=== PATIENT | male | born 1960 | race Caucasian/White ===

== ENCOUNTER 2019-11-25 08:54 | Outpatient (CLI) | payer OTHER, SELFPAY ==
--- NOTE | ~2019-11-25 | CT_ITS ---
EXAMINATION: CT abdomen pelvis wo/w con EXAM DATE: 11/25/2019 10:32 INDICATION: Recurrent UTI. Bladder cancer. TECHNIQUE: Spiral CT of the abdomen and pelvis was performed without contrast. The patient was then injected with small bolus intravenous Omnipaque 350, followed by delay of approximately 10 minutes to allow collecting system to opacify. A post contrast scan abdomen and pelvis was performed during inj ection of remaining contrast. A total of 130 cc intravenous contrast was administered. The dose-gabriele th product (DLP) for this examination was 1672.32 mGy-cm. The exposure was tailored according to pat ient size (auto mA exposure control), and iterative reconstruction (ASIR) was used as additional dose reduction technique. Comparison is made to prior examination from 05/10/2015. FINDINGS: There is no hydronephrosis or nephrolithiasis. Largest cyst identified is in the superior pole of the left kidney measuring 3.8 cm. There is slightly decreased enhancement to the left kidney posterior superomedial cortex compared to the other portions of the left kidney, also with slight vo lume loss, both findings new compared to previous examination. This could be a region which was recen tly infected, with some scarring accounting for volume loss. Complete infarction would have had more substantial volume loss. There are no suspicious renal lesions. The calyces and opacified portions o f ureters are unremarkable, without filling defects or focal suspicious strictures. The bladder is u nremarkable. The prostate is unremarkable. The liver, spleen, adrenal glands and pancreas are unremarkable. Gallbladder is unremarkable. No bi liary obstruction. There is no retroperitoneal or pelvic lymphadenopathy. There is mild scattered arteriosclerotic disease. The appendix is normal. There is small sliding gastroesophageal hiatal hernia. There is moderate sig moid predominant colonic diverticulosis. There is no adjacent inflammatory change to suggest diverti culitis. There is expected amount of colonic stool. No free intraperitoneal gas. The heart is nor mal in size. There are no pericardial or pleural effusions. Mild basilar emphysema. There are no o steoblastic or osteolytic lesions identified. IMPRESSION: 1. Slightly decreased enhancement, perfusion to geographically shaped region of left kidney superior pole with mild volume loss, most likely sequela from prior infection or hypoperfusion. 2. No evidence of metastatic disease. 3. Moderate colonic diverticulosis. 4. Mild emphysema. Reviewed, dictated and finalized at location A. IMPRESSION: 1. Slightly decreased enhancement, perfusion to geographically shaped region o f left kidney superior pole with mild volume loss, most likely sequela from gilda or infection or hypoperfusion. 2. No evidence of metastatic disease. 3. Moderate colonic diverticulosis. 4. Mild emphysema.
--- NOTE | ~2019-11-25 | XR_ITS ---
XR abdomen/kub 1V DATE: 11/25/2019 09:12 INDICATION: Malignant neoplasm of the trigone of the urinary bladder TECHNIQUE: AP projection, 2 views COMPARISON: 08/27/2018 ultrasound of the kidneys and bladder FINDINGS: The psoas shadows are intact. No visceromegaly is evident. The bowel gas pattern is unremar kable, without evidence of obstruction. Bilateral iliac arterial calcifications are noted. IMPRESSION: Nonspecific abdomen Reviewed, dictated and finalized at Location A. Reviewed, dictated and finalized at location A. IMPRESSION: Nonspecific abdomen
[2019-11-25 10:03] LABS: Estimated Glomerular Filt Rate > 60
== END 2019-11-25 08:55 | disposition home or self-care (01) ==
PROVIDERS: PCP Internal Medicine; Visit Provider Urology
DX: C67.0 Malignant neoplasm of trigone of bladder (principal); R93.422 Abnormal radiologic findings on diagnostic imaging of left kidney; K57.90 Diverticulosis of intestine, part unspecified, without perforation or abscess without bleeding; J43.9 Emphysema, unspecified
CPT/HCPCS: 36415; 74018; 74178; Q9967

== ENCOUNTER 2020-01-08 09:45 | Outpatient (CLI) | payer OTHER, SELFPAY ==
[2020-01-08 13:47] LABS: Basophils Absolute Auto 0.1 K/mm3 (0.0-0.1); Basophils Percent Auto 0.6 % (0.2-1.2); Eosinophils Absolute Auto 0.1 K/mm3 (0-0.3); Hematocrit 40.2 % (42.0-52.0); Hemoglobin 13.9 g/dL (14.0-18.0); Immature Granulocyte Absolute 0.04 K/mm3 (0.00-0.031); Immature Granulocyte Percent A 0.4 % (0-0.5); Lymphocytes Absolute Auto 2.67 K/mm3 (0.9-3.2); Lymphocytes Percent Auto 27.3 % (18.3-44.2); Mean Corpuscular HGB Conc 34.6 g/dl (32-36); Mean Corpuscular Hemoglobin 30.3 pg (26-34); Mean Corpuscular Volume 87.6 fl (80-100); Mean Platelet Volume 8.3 fl (7.4-10.4); Monocytes Absolute Auto 0.4 K/mm3 (0.1-0.6); Monocytes Percent Auto 3.7 % (2.6-8.5); Neutrophils Absolute Auto 6.6 K/mm3 (1.3-6.7); Platelet Count Result 222 k/mm3 (150-375); Red Blood Count 4.59 M/mm3 (4.6-6.20); Red Cell Distribution Width 14.8 % (11.5-14.5); White Blood Count 9.8 K/mm3 (4.5-10.0)
[2020-01-08 13:57] LABS: Prothrombin Time 13.2 Seconds (11.1-14.7)
[2020-01-08 13:58] LABS: Partial Thromboplastin Time 27.9 SECONDS (22.3-36.8)
[2020-01-08 14:02] LABS: Blood Urea Nitrogen 14 mg/dL (9-20); Calcium 9.2 mg/dL (8.4-10.2); Carbon Dioxide 25 mmol/L (22-30); Chloride 101 mmol/L (98-107); Estimated Glomerular Filt Rate > 60; Glucose 164 mg/dL (75-110); Potassium 3.9 mmol/L (3.4-5.0); Sodium 137 mmol/L (137-145)
== END 2020-01-08 09:46 ==
LOC: ANHSURGERY 02-01 06:43
PROVIDERS: PCP Internal Medicine; Visit Provider Urology
DX: Z01.818 Encounter for other preprocedural examination (principal); N32.9 Bladder disorder, unspecified
CPT/HCPCS: 36415; 80048; 85025; 85610; 85730; 87086

== ENCOUNTER 2020-01-16 06:22 | Outpatient (CLI) | payer OTHER, SELFPAY ==
[2020-01-16 17:27] LABS: SARS-CoV-2 RNA PCR Negative
== END 2020-01-16 06:23 | disposition home or self-care (01) ==
LOC: ANHCOVIDDT 06:22
PROVIDERS: PCP Internal Medicine; Visit Provider Urology
DX: Z01.812 Encounter for preprocedural laboratory examination (principal); Z11.59 Encounter for screening for other viral diseases
CPT/HCPCS: 87635; C9803; U0003

== ENCOUNTER 2020-01-19 02:26 | Day surgery (SDC) | payer OTHER, SELFPAY ==
[2020-01-06 16:08] VITALS: BMI 29.9
[2020-01-19] VITALS (9 sets, daily range): BP systolic 95–110; BP diastolic 59–80; PULSE 56–70; RESP 12–20; TEMP 36.1–36.7; O2SAT 97–100
--- NOTE | ~2020-01-19 | XR_ITS ---
XR OR cystogram 01/19/2020 12:22 Pain management procedure TECHNIQUE: Fluoroscopy used during intraoperative cystoscopy performed by [Pete Barlow MD] on 01/19/2020. 13 seconds of fluoroscopy time with 10 images captured. ]The DAP is 6.189 mGym2. ] FINDINGS: There is normal filling of the bladder in retrograde fashion. No focal bladder wall abnorma lities are seen. No evidence for extravasation or reflux. Correlate with procedure note. IMPRESSION: Unremarkable cystogram performed intraoperatively. Correlate with procedural findings. Reviewed, dictated and finalized at location A. IMPRESSION: Unremarkable cystogram performed intraoperatively. Correlate with p rocedural findings.
[2020-01-19] MEDS: LACTATED RINGERS 1,000 ML 30 ML IV CONT (09:00)
--- NOTE | 2020-01-19 09:32 | ECG_ITS ---
Measurements Intervals [place] Rate: 63 P: 77 [place]: 198 QRS: 59 QRSD: 88 T: 60 QT: 400 QTc: 411 Interpretive Statements SINUS RHYTHM NORMAL ECG Electronically Signed On 01-19-2020 10:53:35 CDT by Stan Leija D.O.
--- NOTE | 2020-01-19 10:30 | WPDANESEPPF ---
Anes - Initial Pre Proc Eval Procedure: Operation Date: 01/19/20 11:45 Proposed Procedures p Cystoscopy, Bladder Biopsy - Pete Barlow MD s Possible Trans Urethral Resection Bladder Tumor - Pete Barlow MD Date/Time: 01/19/20 10:30 Surgeon: Pete Barlow MD Pre Op Diagnosis: bladder lesion,Bladder Cancer Patient Data Age: 60 Gender: M Height: 5 ft 11 in Weight: 97.52 kg Last Vital Signs Temp 36.1 C L 01/19/20 09:49 Pulse 70 01/19/20 09:49 Resp 20 01/19/20 09:49 BP 104/59 L 01/19/20 09:49 Pulse Ox 97 01/19/20 09:49 Allergies Allergy/AdvReac Type Severity Reaction Status Date / Time No Known Allergies Allergy Unknown Unverified 01/19/20 10:27 Home Medications Medication Instructions Recorded Confirmed Type aspirin 325 mg tablet 325 mg PO QPM 08/07/19 01/06/20 History atorvastatin 80 mg tablet 80 mg PO QPM 08/07/19 01/06/20 History isosorbide mononitrate 30 mg 30 mg PO QPM 08/07/19 01/06/20 History tablet,extended release 24 hr lisinopril 10 1 tablet PO QPM 08/07/19 01/06/20 History mg-hydrochlorothiazide 12.5 mg tablet omega 4-jft-dxq-fish oil 1,000 mg 2 cap PO QPM cap 08/07/19 01/06/20 History (120 mg-180 mg) capsule quetiapine 25 mg tablet 50 mg PO QPM tablet 08/07/19 01/06/20 History tamsulosin 0.4 mg capsule 0.4 mg PO QPM 08/07/19 01/06/20 History amoxicillin-pot clavulanate 1 tablet PO BID 01/06/20 01/06/20 History cranberry 2 cap PO QPM 01/06/20 01/06/20 History ferrous sulfate 325 mg PO QPM 01/06/20 01/06/20 History Patient hx anesthesia problems: none Family hx anesthesia problems: none PMFSH Past Medical History Medical History Acute diverticulitis Anemia, unspecified CAD in [place] artery CKD (chronic kidney disease) stage 3, GFR 30-59 ml/min Dyslipidemia Essential hypertension (06/02/18) Orthostatic syncope PAD (peripheral artery disease) Smoking Surgical History Surgical History History of tonsillectomy Status post femoral-popliteal bypass surgery Family History Family History Father Acute myocardial infarction Family history of elevated blood lipids Malignant neoplasm of prostate Other Family history of cardiovascular disease Family history of chronic obstructive pulmonary disease Family history of malignant neoplasm Social History Social History Smoking status: Smoker, status unknown Alcohol intake: current Anes - Eval Final PreProcedure Day of Procedure 01/19/20 10:30 Patient weight: obese Heart: regular rate and rhythm Lungs: clear to auscultation Airway: Mallampati scale class II Neurological: alert and oriented Last oral intake: >/= 8 hours ASA classification: III Emergent: no Anesthetic plan: proceed Anesthesia type and monitoring: general LMA and standard monitoring Informed Consent: The patient's anesthetic plan and its attendant risks and benefits were discussed with the patient/family/POA. Questions were solicited and answers provided to the satisfaction of the patient/family/POA.
--- NOTE | 2020-01-19 10:38 | WPDHPUPDATE1 ---
History and Physical Update Update Date/Time: 01/19/20 10:38 History and Physical has been reviewed, including an updated exam of the patient. There are NO changes in the patient's condition. Risks, benefits, and alternatives have been discussed and questions answered. Patient agrees to proceed with procedure.
[2020-01-19] MEDS: ceFAZolin 2 GM/D5W 50 ML 2 GM/50 ML BAG IVPB (11:36)
[2020-01-19] MEDS: LIDOCAINE HCL 2% GEL UROJET 10 ML PKG MUCOUS MEM (11:51)
[2020-01-19] MEDS: KETOROLAC 30 MG/ML VIAL (*BKC) IV PUSH (12:18)
--- NOTE | 2020-01-19 12:21 | P.OP_ITS ---
Procedure Note - Detailed Date of procedure: 01/19/20 Pre-op diagnosis: bladder lesion,Bladder Cancer Post-op diagnosis: same (Possible fistulous opening) Procedure performed: Cystoscopy with bladder biopsy, cystogram. Description of procedure: Patient was taken the operative suite and correctly identified. Once anesthesia was obtained was placed in the dorsal lithotomy position and prepped and draped usual sterile fashion. Twenty-two [place] scope was inserted in the bladder in direct vision. There is no papillary tumors. There is an area along the posterior wall extending towards the dome which had a slight divot in the office. All I see at this point is some tissue coming from this little irregular area. We used a cold cup biopsy to biopsy this area. Once we remove some of this tissue was apparent that it almost had a little fistulous opening. We went ahead and tried to place a wire through it but was unsuccessful. We then did a cystogram with approximately 300 cc of contrast. There was no evidence of extravasation. At this point time we simply went ahead and fulgurated the area that was biopsied along with this apparent fistulous track which may have been closed. 2% viscous lidocaine was inserted into the urethra needs taken recovery stable condition. We will simply plan on seeing him in the office in about 3 months for a cystoscopy for re-evaluation. Anesthesia: GLMA Surgeon: Pete Barlow MD Drains: No Packing: No Pathology: yes Complications: No immediate complications Condition: stable Disposition: PACU
== END 2020-01-19 14:05 | disposition home or self-care (01) ==
PROVIDERS: PCP Internal Medicine; Visit Provider Urology
PROC: 0TBB8ZX Excision of Bladder, Via Natural or Artificial Opening Endoscopic, Diagnostic (ICD-10-PCS; CPT 52204; principal; 2020-01-19 11:45)
DX: N30.80 Other cystitis without hematuria (principal); I25.10 Atherosclerotic heart disease of native coronary artery without angina pectoris; I12.9 Hypertensive chronic kidney disease with stage 1 through stage 4 chronic kidney disease, or unspecified chronic kidney disease; N18.3 Chronic kidney disease, stage 3 (moderate); E78.5 Hyperlipidemia, unspecified; I73.9 Peripheral vascular disease, unspecified; D64.9 Anemia, unspecified; E66.9 Obesity, unspecified; Z68.29 Body mass index [BMI] 29.0-29.9, adult; Z79.82 Long term (current) use of aspirin
CPT/HCPCS: 52204; 74430; 87635; 88305; 93005; A9270; C1758; C1769; J0690; J1100; J1885; J2250; J2370; J2405; J2704; J3010; J7120; U0003

== ENCOUNTER 2021-05-04 08:01 | Outpatient (CLI) | payer OTHER, SELFPAY ==
--- NOTE | ~2021-05-04 | US_ITS ---
US arterial ankle brachial ind INDICATION: Peripheral vascular disease TECHNIQUE: Segmental pressures and plethysmographic and Doppler waveforms of the brachial and lower e xtremity arteries were obtained. COMPARISON: None. FINDINGS: Right and left brachial artery pressures of 129 mm Hg and 135 mm Hg, respectively, are concordant (no rmal difference <= 30 mmHg). The right ankle-brachial index (LESLEY) is 1.11 (normal >= 0.9-1.0). The right great toe-brachial index (TBI) is 0.85 (normal >= 0.60). The left LESLEY is 0.93. The left TBI is 0.89. IMPRESSION: 1. Normal bilateral ankle and toe brachial indices. Reviewed, dictated and finalized at location B.
== END 2021-05-04 08:02 | disposition home or self-care (01) ==
LOC: ANHIMG 08:05
PROVIDERS: PCP Internal Medicine; Visit Provider Internal Medicine Cardiovascular Disease
DX: I73.9 Peripheral vascular disease, unspecified (principal)
CPT/HCPCS: 93922

== ENCOUNTER 2021-06-15 02:23 | Day surgery (SDC) | payer OTHER, SELFPAY ==
[2021-05-30 12:38] VITALS: BMI 30.7
[2021-06-15 08:18] VITALS: BP 115/73; PULSE 68; RESP 16; TEMP 36.2; O2SAT 96
[2021-06-15] MEDS: LACTATED RINGERS 1,000 ML 150 ML IV CONT (08:24)
--- NOTE | 2021-06-15 08:49 | WPDANESEPPF ---
Anes - Initial Pre Proc Eval Procedure: Operation Date: 06/15/21 09:00 Proposed Procedures p Esophagogastroduodenoscopy & Colonoscopy - Alex Mccall DO Date/Time: 06/15/21 08:49 Surgeon: Alex Mccall DO Pre Op Diagnosis: change in bowel habits, GERD Patient Data Age: 61 Gender: M Height: 1.8 m Weight: 97.4 kg Last Vital Signs Temp 97.2 F L 06/15/21 08:18 Pulse 68 06/15/21 08:18 Resp 16 06/15/21 08:18 BP 115/73 06/15/21 08:18 Pulse Ox 96 06/15/21 08:18 Allergies Allergy/AdvReac Type Severity Reaction Status Date / Time No Known Allergies Allergy Unknown Verified 06/15/21 08:17 Home Medications Medication Instructions Recorded Confirmed Type aspirin 325 mg tablet 81 mg PO QPM 08/07/19 05/30/21 History atorvastatin 80 mg tablet 80 mg PO QPM 08/07/19 05/30/21 History isosorbide mononitrate 30 mg 30 mg PO QPM 08/07/19 05/30/21 History tablet,extended release 24 hr omega 8-sml-meu-fish oil 1,000 mg 3 cap PO QPM cap 08/07/19 05/30/21 History (120 mg-180 mg) capsule quetiapine 25 mg tablet 25 mg PO QPM tablet 08/07/19 05/30/21 History tamsulosin 0.4 mg capsule 0.4 mg PO QPM 08/07/19 05/30/21 History bupropion HCl 300 mg 24 hr tablet, 300 mg PO QAM 04/21/20 05/30/21 History extended release escitalopram oxalate 20 mg tablet 10 mg PO DAILY 04/21/20 05/30/21 History nitrofurantoin macrocrystal 50 mg 50 mg PO Q12H 04/21/20 05/30/21 History capsule pantoprazole 40 mg PO QAM 05/30/21 05/30/21 History Patient hx anesthesia problems: none Family hx anesthesia problems: none Results Review: All pre-operative results and documents have been reviewed as part of the pre-operative evaluation. [facility] Past Medical History Medical History Acute diverticulitis Anemia, unspecified CAD in [place] artery CKD (chronic kidney disease) stage 3, GFR 30-59 ml/min Dyslipidemia Essential hypertension (06/02/18) Orthostatic syncope PAD (peripheral artery disease) Smoking Surgical History Surgical History History of tonsillectomy Status post femoral-popliteal bypass surgery Family History Family History Father Acute myocardial infarction Family history of elevated blood lipids Malignant neoplasm of prostate Other Family history of cardiovascular disease Family history of chronic obstructive pulmonary disease Family history of malignant neoplasm Social History Social History Smoking packs per day: 0.75 Smoking cigarettes per day: 15.0 Years smoked: 50 Smoking pack-years: 37.50 Smoking status: Current every day smoker Tobacco type: cigarettes Alcohol intake: former Substance use: never Substance use type: does not use Living arrangements: with family Spiritual care concerns: No Anes - Eval Final PreProcedure Day of Procedure 06/15/21 08:49 Patient weight: overweight Heart: regular rate and rhythm Lungs: clear to auscultation Airway: Mallampati scale Neurological: alert and oriented Last oral intake: >/= 8 hours ASA classification: III Emergent: no Anesthetic plan: proceed Anesthesia type and monitoring: general GIVS and standard monitoring Results Review: All pre-operative results and documents have been reviewed as part of the pre-operative evaluation. Informed Consent: The patient's anesthetic plan and its attendant risks and benefits were discussed with the patient/family/POA. Questions were solicited and answers provided to the satisfaction of the patient/family/POA.
--- NOTE | 2021-06-15 09:44 | PM.IMHP ---
H&P: HPI History of Present Illness Date/Time: 06/15/21 09:44 Chief Complaint: GERD, change in bowel habits Narrative: this is a 61-year-old man who presents with recent episodes of acid reflux. He was experiencing heartburn acid reflux after eating tomato products. He was started on pantoprazole and has noted improvement in symptoms. He was also experiencing some change in bowel habits alternating between diarrhea and constipation. His last colonoscopy was 4 years ago. He denies any hematochezia or melena. He denies any hematemesis. Review of Systems Review of Systems: All systems reviewed & are unremarkable except as noted in HPI and below Eyes: Eyes: Denies change in vision ENT: Denies hearing loss, Denies neck pain and Denies sore throat Cardiovascular: Cardiovascular: Denies chest pain and Denies dyspnea Respiratory: Respiratory: Denies cough, Denies dyspnea and Denies wheezing Genitourinary: Genitourinary: Denies hematuria and Denies dysuria Musculoskeletal: Musculoskeletal: Denies arthralgias, Denies joint swelling and Denies neck pain Allergic/Immunologic: Allergic/Immunologic: Denies wheezing PMFSH Past Medical History Medical History Acute diverticulitis Anemia, unspecified CAD in [place] artery CKD (chronic kidney disease) stage 3, GFR 30-59 ml/min Dyslipidemia Essential hypertension (06/02/18) Orthostatic syncope PAD (peripheral artery disease) Smoking Surgical History Surgical History History of tonsillectomy Status post femoral-popliteal bypass surgery Family History Family History Father Acute myocardial infarction Family history of elevated blood lipids Malignant neoplasm of prostate Other Family history of cardiovascular disease Family history of chronic obstructive pulmonary disease Family history of malignant neoplasm Social History Social History Smoking packs per day: 0.75 Smoking cigarettes per day: 15.0 Years smoked: 50 Smoking pack-years: 37.50 Smoking status: Current every day smoker Tobacco type: cigarettes Alcohol intake: former Substance use: never Substance use type: does not use Living arrangements: with family Spiritual care concerns: No Meds Home Medications and Allergies Home Medications Medication Instructions Recorded Confirmed Type aspirin 325 mg tablet 81 mg PO QPM 08/07/19 05/30/21 History atorvastatin 80 mg tablet 80 mg PO QPM 08/07/19 05/30/21 History isosorbide mononitrate 30 mg 30 mg PO QPM 08/07/19 05/30/21 History tablet,extended release 24 hr omega 1-txh-egt-fish oil 1,000 mg 3 cap PO QPM cap 08/07/19 05/30/21 History (120 mg-180 mg) capsule quetiapine 25 mg tablet 25 mg PO QPM tablet 08/07/19 05/30/21 History tamsulosin 0.4 mg capsule 0.4 mg PO QPM 08/07/19 05/30/21 History bupropion HCl 300 mg 24 hr tablet, 300 mg PO QAM 04/21/20 05/30/21 History extended release escitalopram oxalate 20 mg tablet 10 mg PO DAILY 04/21/20 05/30/21 History nitrofurantoin macrocrystal 50 mg 50 mg PO Q12H 04/21/20 05/30/21 History capsule pantoprazole 40 mg PO QAM 05/30/21 05/30/21 History Allergies Allergy/AdvReac Type Severity Reaction Status Date / Time No Known Allergies Allergy Unknown Verified 06/15/21 08:17 Vital Signs Vital Signs - 24 hr 06/15/21 08:18 Temperature 36.2 C L Pulse Rate 68 Respiratory Rate 16 Blood Pressure 115/73 Pulse Oximetry 96 Exam Const: General: alert; No acute distress Orientation/consciousness: patient oriented x3 Limitations: no limitations HENMT: Head: normocephalic and atraumatic Ears: hearing grossly normal bilaterally General nose exam: Normal external nose present and Normal nares present Mouth: Yes Normal oral and palatal mucosa present and Yes moist mucous membranes Eyes: General:
[2021-06-15] MEDS: BENZOCAINE (*SP) 60 ML SPRAY CAN (HURRICAINE) 1 SPRAY MUCOUS MEM (09:53)
--- NOTE | 2021-06-15 10:33 | SUR.OPER ---
EGD START 957, END 1006 COLONOSCOPY START 101, END 1033
[2021-06-15 10:37] VITALS: BP 109/69; PULSE 73; RESP 16; O2SAT 96
[2021-06-15 10:47] VITALS: BP 103/68; PULSE 75; RESP 20; O2SAT 96
[2021-06-15 10:57] VITALS: BP 114/74; PULSE 64; RESP 20; O2SAT 98
== END 2021-06-15 11:11 | disposition home or self-care (01) ==
PROVIDERS: PCP Internal Medicine; Visit Provider Surgery
PROC: 0DJ08ZZ Inspection of Upper Intestinal Tract, Via Natural or Artificial Opening Endoscopic (ICD-10-PCS; CPT 43235; principal; 2021-06-15 09:00)
DX: R19.4 Change in bowel habit (principal); D12.5 Benign neoplasm of sigmoid colon; K57.30 Diverticulosis of large intestine without perforation or abscess without bleeding; K22.89 Other specified disease of esophagus; K22.70 Barrett's esophagus without dysplasia; K21.00 Gastro-esophageal reflux disease with esophagitis, without bleeding; I12.9 Hypertensive chronic kidney disease with stage 1 through stage 4 chronic kidney disease, or unspecified chronic kidney disease; N18.30 Chronic kidney disease, stage 3 unspecified; I25.10 Atherosclerotic heart disease of native coronary artery without angina pectoris; D64.9 Anemia, unspecified; E78.5 Hyperlipidemia, unspecified; I73.9 Peripheral vascular disease, unspecified; Z79.82 Long term (current) use of aspirin; F17.210 Nicotine dependence, cigarettes, uncomplicated
CPT/HCPCS: 45385; 43239; 87081; 88305; J2704; J7120

== ENCOUNTER 2021-07-05 07:54 | Outpatient (CLI) | payer OTHER, SELFPAY ==
--- NOTE | ~2021-07-05 | NM_ITS ---
EXAMINATION: NM zuleyka stress w perfusion DATE: 07/05/2021 10:03 INDICATION: Chest pain, unspecified. TECHNIQUE: Rest images were obtained following intravenous administration of 10.12 mCi Tc99m tetrofos min (Myoview). The patient was infused intravenously with Lexiscan (regadenoson). Then, 32.8 mCi Tc99 m tetrofosmin (Myoview) was administered intravenously, and supine and prone stress images were obtai meli. Data was reconstructed into short axis and horizontal and vertical long axis SPECT images. Gated SPECT images were also obtained. COMPARISON: CT abdomen and pelvis 11/25/2019 FINDINGS: There is a small, mild, fixed perfusion defect involving mid inferior segment of left ventr icle, consistent with infarct. No reversible component to suggest ischemia. There is no segmental wa ll motion abnormality. Left ventricular ejection fraction measures 61%. IMPRESSION: 1. Small area of mild infarct involving mid inferior segment of left ventricle. 2. Normal left ventricular ejection fraction measuring 61%. Reviewed, dictated and finalized at location A. TREATER
--- NOTE | 2021-07-05 08:14 | EST_ITS ---
Patient Info Name: Kartik Younger Age: 61 years : 1960 Gender: Male Ht: 70 in Wt: 214 lbs BSA: 2.22 m2 HR: 66 bpm BP: 105 / 71 mmHg Heart Rhythm: Sinus Rhythm Exam Date: 07/05/2021 8:53 AM Exam Location: [facility] Stress Patient Status: Outpatient Admit Date: 07/05/2021 Staff Ordering Physician: Stan Leija DO Attending Provider: Stan Leija DO Exercise Technologist: Ekaterina Loaiza CT Exam Type: CA stress zuleyka w NM Study Info Indications R07.9 - Chest pain, unspecified A regadenoson stress test was performed. Summary 1. 1. Negative lexiscan stress test for ischemic ST changes by ECG criteria. 2. 2. Stable hemodynamics throughout the test. 3. 3. Nuclear scan to follow and will be reported separately. Please correlate with it. 4. 4. Patient informed of the above results. Protocol: Lexiscan Stress ECG Details Stage: REST Duration (min): 0 min : 51 sec HR (bpm): 68 SBP (mmHg): 105 DBP (mmHg): 71 Stage: REST Duration (min): 8 min : 38 sec HR (bpm): 65 SBP (mmHg): 105 DBP (mmHg): 71 Stage: STAGE 1 Duration (min): 1 min : 0 sec HR (bpm): 85 SBP (mmHg): 108 DBP (mmHg): 80 Stage: RECOVERY Duration (min): 1 min : 0 sec HR (bpm): 91 SBP (mmHg): 108 DBP (mmHg): 80 Stage: RECOVERY Duration (min): 2 min : 0 sec HR (bpm): 85 SBP (mmHg): 108 DBP (mmHg): 80 Stage: RECOVERY Duration (min): 2 min : 55 sec HR (bpm): 80 SBP (mmHg): 97 DBP (mmHg): 72 Rest HR: 65 bpm Peak HR: 95 bpm Rest Sys BP: 105 mmHg Peak Sys BP: 108 mmHg Max Pred HR: 158 bpm % Max Pred HR: 60 % Target HR: 134 bpm Max RPP: 10,260 bpm*mmHg Termination Reason: Completed protocol Cardiac Symptoms: Shortness of breath Total Time: 1 min : 0 sec Rest Sauer BP: 71 mmHg Peak Sauer BP: 80 mmHg Total Dose: 0.4 mg Resting ECG Sinus rhythm. Stress ECG No ST changes. Arrhythmias None. Report Signatures
== END 2021-07-05 07:55 | disposition home or self-care (01) ==
LOC: ANHCARD 07:55
PROVIDERS: PCP Internal Medicine; Visit Provider Internal Medicine Cardiovascular Disease
DX: R07.89 Other chest pain (principal)
CPT/HCPCS: 78452; 93017; A9502

== ENCOUNTER 2021-11-24 07:46 | Outpatient (CLI) | payer OTHER, SELFPAY ==
--- NOTE | ~2021-11-24 | CT_ITS ---
EXAMINATION: CT lung screening DATE: 11/24/2021 08:09 INDICATION: Personal history of nicotine dependence, current smoker with 45 pack year history TECHNIQUE: Computed tomography (CT) of the chest was performed without intravenous contrast. The dose -length product (DLP) was 277.00 mGy-cm. Automated exposure control and iterative reconstruction tech [employer] were employed. COMPARISON: None FINDINGS: There is moderate emphysema. No suspicious pulmonary nodules are identified. Calcified pulm onary nodules and calcified left hilar lymph nodes are consistent with old granulomatous disease. The lungs are free of acute opacities. There is no pleural effusion or pneumothorax. No pathologically e nlarged thoracic lymph nodes are identified. The heart size is normal. Calcified coronary artery athe rosclerosis is noted. Punctate calcifications in an otherwise normal spleen likely represent healed g ranulomatous disease. There is a 4.4 cm cyst of the left kidney. There is mild thoracic spondylosis. IMPRESSION: 1. Lung-RADS category 1: Negative. Continue annual screening with noncontrast low-dose chest CT in 12 months. Reviewed, dictated and finalized at location A. IMPRESSION: 1. Lung-RADS category 1: Negative. Continue annual screening with noncontrast l ow-dose chest CT in 12 months.
== END 2021-11-24 07:47 | disposition home or self-care (01) ==
LOC: CHSIMG 07:47
PROVIDERS: PCP Internal Medicine; Visit Provider Internal Medicine
DX: Z12.2 Encounter for screening for malignant neoplasm of respiratory organs (principal); Z87.891 Personal history of nicotine dependence
CPT/HCPCS: 71271

== ENCOUNTER 2022-05-30 11:55 | Emergency (ER) | payer OTHER, SELFPAY ==
--- NOTE | ~2022-05-30 | CT_ITS ---
EXAMINATION: CT brain wo con DATE: 05/30/2022 12:35 INDICATION: Confusion TECHNIQUE: Computed tomography (CT) of the head was performed without intravenous contrast. The mA wa s adjusted according to patient size. Iterative reconstruction technique was employed. Exam dose: 60 5.33 mGy-cm total exam DLP. COMPARISON: 01/21/2019 CT head FINDINGS: Bilateral carotid siphon internal carotid artery calcifications. No intracranial mass lesion or hemorrhage, midline shift or mass effect or cerebrovascular accident i s detected. No midline shift or mass effect. Normal ventricular size. No subdural or epidural hematom a. There is an old blowout fracture of the medial wall of the left orbit. No fracture or destruction of the cranial vault. Left nasal antral window. IMPRESSION: Cerebral atherosclerosis No acute intracranial finding Reviewed, dictated and finalized at [facility]. Reviewed, dictated and finalized at [facility]. EM VALIDATION ENGINEER
--- NOTE | ~2022-05-30 | XR_ITS ---
EXAMINATION: XR chest 1V portable DATE: 05/30/2022 12:36 INDICATION: Chest pain. TECHNIQUE: A single frontal view of the chest was obtained on 2 radiographs. COMPARISON: Chest 2 views 01/21/2019, chest CT 11/24/2021 FINDINGS: A calcified left lung nodule is consistent with old granulomatous disease. No pleural effus ion or pneumothorax. The heart size is normal. IMPRESSION: 1. No acute cardiopulmonary disease. Reviewed, dictated and finalized at location [facility]. SPECIALIST
[2022-05-30 11:55] VITALS: BP 155/88; PULSE 100; RESP 20; TEMP 38.2; O2SAT 97
--- NOTE | 2022-05-30 12:19 | ECG_ITS ---
Measurements Intervals [place] Rate: 93 P: 66 [place]: 172 QRS: 46 QRSD: 98 T: 43 QT: 335 QTc: 417 Interpretive Statements SINUS RHYTHM BORDERLINE ST ABNORMALITY- ANTEROLATERAL LEADS BASELINE WANDER- V4 BORDERLINE ECG COMPARED TO ECG 01/19/2020 10:24:26 NO SIGNIFICANT CHANGES Electronically Signed On 05-30-2022 14:01:00 DRAWBRIDGE TENDER by Stan Leija D.O.
[2022-05-30 12:32] LABS: Basophils Absolute Auto 0.03 K/mm3 (0.00-0.10); Basophils Percent Auto 0.2 % (0.0-1.0); Hematocrit 41.5 % (40.0-54.0); Hemoglobin 14.1 g/dL (14.0-18.0); Immature Granulocyte Absolute 0.05 K/mm3 (0.00-0.00); Immature Granulocyte Percent A 0.4 % (0.0-0.0); Lymphocytes Absolute Auto 0.88 K/mm3 (1.10-4.50); Lymphocytes Percent Auto 6.4 % (18.0-42.0); Mean Corpuscular Hemoglobin 29.9 pg (27.0-31.0); Mean Corpuscular Volume 88.1 fL (78.0-102.0); Mean Platelet Volume 8.7 fl (8.7-11.0); Monocytes Absolute Auto 0.97 K/mm3 (0.10-0.90); Neutrophils Absolute Auto 11.9 K/mm3 (1.7-7.2); Platelet Count Result 187 K/mm3 (150-420); Red Blood Count 4.71 M/mm3 (4.70-6.10); White Blood Count 13.8 K/mm3 (4.8-10.8)
[2022-05-30 12:48] LABS: Bilirubin Urine Negative (Negative); Blood Urine 2+ (Negative); Glucose Urine UA Negative (Negative); Ketones Urine Negative (Negative); Leukocyte Esterase Ur 2+ (Negative); Nitrate Urine Negative (Negative); Protein Urine 3+ (Negative); Specific Grav Ur 1.025 (1.010-1.020); Urobilinogen Urine 0.2 mg/dL (0.2-1.0)
[2022-05-30 12:52] LABS: Alanine Aminotransferase 28 U/L (16-63); Albumin Level 3.7 g/dL (3.4-5.0); Alkaline Phosphatase 50 U/L (46-116); Anion Gap 13 mmol/L (8-16); Aspartate Amino Transferase 19 U/L (15-37); Bilirubin,Total 0.8 mg/dL (0.00-1.00); Blood Urea Nitrogen 15 mg/dL (7-18); Calcium 8.6 mg/dL (8.5-10.1); Carbon Dioxide 22 mmol/L (21-32); Chloride 97 mmol/L (98-108); Estimated CRCL calculation 55 ml/min; Estimated Glomerular Filt Rate 50; Glucose 133 mg/dL (70-99); Lactic Acid Reflex 1.7 mmol/L (0.4-2.0); Osmolality Calculated 276 mOsm/kg (285-295); Potassium 3.9 mmol/L (3.5-5.1); Sodium 132 mmol/L (136-145); Total Protein 8.3 g/dL (6.4-8.2); Troponin I 16.4 ng/L (0.00-60.4)
[2022-05-30 13:00] LABS: Add Urine Microscopic? YES; Appearance Urine Cloudy (Clear); Color Urine Light Yellow (Yellow); WBC Urine 51-75 /hpf (0-3)
[2022-05-30 13:01] LABS: Bacteria Urine 3+ /hpf
[2022-05-30] MEDS: IBUPROFEN 400 MG TABLET 800 MG PO (13:15)
[2022-05-30] MEDS: ACETAMINOPHEN 325 MG TABLET 650 MG PO (13:15)
[2022-05-30] MEDS: SODIUM CHLORIDE 0.9% IV 1,000 ML 999 ML IV CONT (13:17)
[2022-05-30 13:39] LABS: Influenza A QL RT-PCR Negative (Negative); Influenza B QL RT-PCR Negative (Negative); SARS-CoV-2 RNA PCR Negative (Negative)
[2022-05-30 13:40] VITALS: BP 145/82; PULSE 84; RESP 20; TEMP 38.7; O2SAT 93
[2022-05-30 13:56] LABS: Strep Group A RT-PCR Negative (Negative)
--- NOTE | 2022-05-30 14:05 | ED.MALEGU ---
HPI - Male Genitourinary General Chief complaint: Urogenital-Male Stated complaint: UTI,HIGH FEVER Time Seen by Provider: 05/30/22 11:59 Source: patient, family and RN notes reviewed Mode of arrival: ambulatory Limitations: no limitations History of Present Illness HPI Narrative: dysuria MD Complaint: dysuria and other (mild confusion, better in the ED.) Onset (ago): day(s) (2) Duration: constant Severity: mild Quality: burning Relieving factors: none Exacerbating factors: none Related Data Home Medications Medication Instructions Recorded Confirmed aspirin 325 mg tablet 81 mg PO QPM 08/07/19 05/30/22 atorvastatin 80 mg tablet 80 mg PO QPM 08/07/19 05/30/22 isosorbide mononitrate 30 mg 30 mg PO QPM 08/07/19 05/30/22 tablet,extended release 24 hr quetiapine 25 mg tablet 25 mg PO QPM 08/07/19 05/30/22 tamsulosin 0.4 mg capsule (Flomax) 0.4 mg PO QPM 08/07/19 05/30/22 bupropion HCl 300 mg 24 hr tablet, 300 mg PO QAM 04/21/20 05/30/22 extended release pantoprazole 40 mg tablet,delayed 40 mg PO QAM 05/30/21 05/30/22 release Allergies Allergy/AdvReac Type Severity Reaction Status Date / Time No Known Allergies Allergy Unknown Verified 05/07/22 13:36 Review of Systems Review of Systems: All systems reviewed & are unremarkable except as noted in HPI and below Constitutional: Constitutional: Reports no additional constitutional complaints Eyes: Eyes: Reports no additional eye complaints ENT: Reports system reviewed and no additional complaints, except as documented Cardiovascular: Cardiovascular: Reports no additional cardiovascular complaints Respiratory: Respiratory: Reports no additional respiratory complaints Gastrointestinal: Gastrointestinal: Reports no additional gastrointestinal complaints Genitourinary: Genitourinary: Reports dysuria Musculoskeletal: Musculoskeletal: Reports no additional musculoskeletal complaints Integumentary/Breasts: Skin/Breast: Reports system reviewed and no additional complaints, except as docu Neurologic: Reports system reviewed and no additional complaints, except as documented Psychiatric: Psychiatric: Reports no additional psychiatric complaints Endocrine: Endocrine: Reports no additional endocrine complaints Hematologic/Lymphatic: Hematologic/Lymphatic: Reports no additional hematologic/lymphatic complaints Allergic/Immunologic: Allergic/Immunologic: Reports no additional allergic/immunologic complaints PMFSH Past Medical History Medical History Acute diverticulitis Anemia, unspecified CAD in [place] artery CKD (chronic kidney disease) stage 3, GFR 30-59 ml/min Dyslipidemia Essential hypertension (06/02/18) Orthostatic syncope PAD (peripheral artery disease) Smoking Urinary tract infection Surgical History Surgical History History of tonsillectomy Status post femoral-popliteal bypass surgery Family History Family History Father Acute myocardial infarction Family history of elevated blood lipids Malignant neoplasm of prostate Other Family history of cardiovascular disease Family history of chronic obstructive pulmonary disease Family history of malignant neoplasm Social History Social History Smoking packs per day: 0.75 Smoking cigarettes per day: 15.0 Years smoked: 50 Smoking pack-years: 37.50 Smoking status: Former smoker Tobacco type: cigarettes Alcohol intake: former Substance use: never Substance use type: does not use Spiritual care concerns: No Exam Const: General: no acute distress, alert, awake, Physically active, well nourished and other (pt was aware of his surroundings and the [employer] president at present.) Nutritional Appearance: well nourished Orientation/consciousness: patient
[2022-05-30 14:06] VITALS: TEMP 39.1
[2022-05-30 14:07] VITALS: TEMP 39.1
[2022-05-30 14:22] VITALS: BP 136/54; PULSE 79; RESP 20; TEMP 39.1; O2SAT 94
--- NOTE | 2022-06-05 12:36 | PC.NURSE ---
FINAL BLOOD CULTURE RESULTS X 2 NO GROWTH AFTER 5 DAYS. NO ACTION NEEDED
== END 2022-05-30 14:45 | disposition home or self-care (01) ==
PROVIDERS: Emergency Provider Emergency Medicine; PCP Internal Medicine
DX: N39.0 Urinary tract infection, site not specified (principal); Z20.822 Contact with and (suspected) exposure to COVID-19
CPT/HCPCS: 36415; 70450; 71045; 80053; 81001; 83605; 84484; 85025; 87040; 87502; 87651; 93005; 96361; 96365; 99284; A9270; J0696; J7030; U0003; U0005

== ENCOUNTER 2022-09-04 09:34 | Outpatient (CLI) | payer OTHER, SELFPAY ==
--- NOTE | ~2022-09-04 | XR_ITS ---
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 There was retrograde administration of 500 mL Omnipaque 350 mixed with saline contrast into patient's existing Amaya catheter. Fluorosco pic images of the pelvis were obtained. A post-void image was also performed. Fluoroscopy exposure ti me was 1.7 minutes. FINDINGS: Contrast fills the bladder which demonstrates a normal contour with no filling defects or mucosal irr egularities. No evident bladder leak. There is transient vesicoureteral reflux of a small amount of c ontrast into the distal third of the left ureter. IMPRESSION: 1. Normal-appearing bladder with no bladder leak. 2. Transient vesicoureteral reflux of a small amount of contrast into the distal third of the left ur eter. Reviewed, dictated and finalized at location [facility]. SECURITY CONSULTANT IMPRESSION: 1. Normal-appearing bladder with no bladder leak. 2. Transient vesicoureteral reflux of a small amount of contrast into the dista l third of the left ureter.
== END 2022-09-04 09:35 | disposition home or self-care (01) ==
PROVIDERS: PCP Internal Medicine; Visit Provider Urology
DX: C67.0 Malignant neoplasm of trigone of bladder (principal)
CPT/HCPCS: 51600; 74430; Q9967

== ENCOUNTER 2022-11-26 07:47 | Outpatient (CLI) | payer OTHER, SELFPAY ==
--- NOTE | ~2022-11-26 | CT_ITS ---
EXAMINATION: CT lung screening DATE: 11/26/2022 08:14 INDICATION: Personal history of nicotine dependence TECHNIQUE: Computed tomography (CT) of the chest was performed without intravenous contrast. The dose -length product was 179.09 mGy-cm. Automated exposure control and iterative reconstruction technique were employed. COMPARISON: None FINDINGS: Heart size is normal. No significant pleural or pericardial effusion. No thoracic lymphaden opathy. Small hiatal hernia. Calcified granuloma left lower lobe. There is a 4.5 cm left renal cyst. Calcified granuloma in the spleen. There is emphysema. No endobronchial lesions. No pneumothorax. Mil d thoracic spondylosis. No suspicious pulmonary nodules or masses. IMPRESSION: 1. Lung-RADS category 1: Negative. Continue annual screening with noncontrast low-dose chest CT in 12 months. Reviewed, dictated and finalized at location [facility]. IMPRESSION: 1. Lung-RADS category 1: Negative. Continue annual screening with noncontrast l ow-dose chest CT in 12 months.
== END 2022-11-26 07:48 | disposition home or self-care (01) ==
LOC: CHSIMG 07:48
PROVIDERS: PCP Internal Medicine; Visit Provider Internal Medicine
DX: Z12.2 Encounter for screening for malignant neoplasm of respiratory organs (principal); Z87.891 Personal history of nicotine dependence
CPT/HCPCS: 71271

== ENCOUNTER 2023-02-19 09:46 | Outpatient (CLI) | payer OTHER, SELFPAY ==
--- NOTE | ~2023-02-19 | CT_ITS ---
EXAMINATION: CTA abd aorta runoff DATE: 02/19/2023 10:51 INDICATION: Peripheral arterial disease. TECHNIQUE: Computed tomographic angiography (CTA) of the abdominal, pelvis, and both lower extremitie s was performed with 150 mL Omnipaque-350 intravenous contrast. Automated exposure control and iterat pierre reconstruction technique were employed. The dose-length product was 1181.38 mGy-cm. Maximum inten sity projection 3D-reconstructions of the arteries were created by the technologist on a separate wor kstation. COMPARISON: CT abdomen and pelvis 11/25/2019 FINDINGS: ABDOMINAL AORTA AND ITS BRANCHES: There is mild aortic atherosclerosis. No aneurysm. There is no significant stenosis of celiac axis, s uperior mesenteric artery, the renal arteries, or inferior mesenteric artery. PELVIC VASCULATURE: There is no significant stenosis of right common iliac artery, right internal iliac artery, or right external iliac artery. There is no significant stenosis of left common iliac artery or left external iliac artery. There is a short dissection of left external iliac artery. There is total occlusion of left internal iliac artery with reconstitution via collaterals. RIGHT LOWER EXTREMITY VASCULATURE: There is mild stenosis of right common femoral artery and profunda femoral arteries. There is total o cclusion of [place] right superficial femoral artery. There is a graft from right common femoral arter y to above-knee popliteal artery. There is no significant stenosis of popliteal artery distal to the graft. There is mild stenosis of right anterior pelvis tibial artery. There is no significant stenosi s of tibioperoneal trunk, posterior tibial artery, or peroneal artery. LEFT LOWER EXTREMITY VASCULATURE: There is mild stenosis of left common femoral artery. There is mild stenosis of origin of left profun da femoris. There is mild stenosis of proximal and distal left superficial femoral artery. 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 There is no significant stenosis of tibioperoneal trunk, peroneal artery, o r posterior tibial artery. There is total occlusion of anterior tibial artery with intermittent recon stitution. There is no significant stenosis of the soft tissues. ADDITIONAL FINDINGS: The visualized portions of the lung bases demonstrate emphysema and mild atelectasis. A calcified lef t lung nodule and calcified left hilar lymph nodes are consistent with old granulomatous disease. No pleural effusion. The heart size is normal. No pericardial effusion. There is a small sliding hiatal hernia. There is an 11 mm cyst in the liver. The gallbladder is normal. Calcifications in the spleen are consistent with old granulomatous disease. The pancreas and adrenal glands are normal. There is c ortical thinning of the kidneys. There are cysts in left kidney measuring up to 4.6 cm . There is div erticulosis of the colon without evidence of diverticulitis. The appendix is normal. There are no pat hologically enlarged lymph nodes. There is an umbilical hernia containing fat. There is no ascites. T here is mild lumbar spondylosis. IMPRESSION: 1. Patent graft from right common femoral artery to above-knee popliteal artery. 2. Total occlusion of left above-knee popliteal artery with reconstitution at the jointline. 3. Total occlusion of left anterior tibial artery with intermittent reconstitution. Reviewed, dictated and finalized at location A. IMPRESSION: 1. Patent graft from right common femoral artery to above-knee popliteal arter y. 2. Total occlusion of left above-knee popliteal artery with reconstitution at t jointline. 3. Total occlusion of left anterior tibial artery with intermittent reconstitut ion
[2023-02-19 10:12] LABS: Estimated Glomerular Filt Rate > 60
== END 2023-02-19 09:47 | disposition home or self-care (01) ==
LOC: CHSIMG 09:50
PROVIDERS: PCP Internal Medicine; Visit Provider Internal Medicine
DX: I73.9 Peripheral vascular disease, unspecified (principal); I77.1 Stricture of artery
CPT/HCPCS: 75635; Q9967

== ENCOUNTER 2023-07-04 07:34 | Outpatient (CLI) | payer OTHER, SELFPAY ==
--- NOTE | ~2023-07-04 | MR_ITS ---
MRI of the brain Clinical History: Diplopia Technique: Axial and sagittal T1-weighted images were acquired. These were followed by axial T2-weigh dionna, diffusion weighted, gradient, and FLAIR images. COMPARISON: 01/21/2019 Findings: There is no acute infarct, intracranial hemorrhage, or mass lesion. Scattered chronic white matter lesions are similar in distribution to prior exam. Ventricles and subarachnoid spaces are unremarkable. Orbits are unremarkable. Paranasal sinuses and m astoid air cells are clear. Major intracranial flow voids are intact. Sagittal midline structures are intact. IMPRESSION: No acute abnormality seen. Chronic microvascular ischemic changes which are similar to prior exam. Reviewed, dictated and finalized at location M. ERENCE MANAGER
== END 2023-07-04 07:35 | disposition home or self-care (01) ==
PROVIDERS: PCP Internal Medicine; Visit Provider Internal Medicine
DX: H53.2 Diplopia (principal)
CPT/HCPCS: 70551

== ENCOUNTER 2023-07-04 14:42 | Outpatient (CLI) | payer OTHER, SELFPAY ==
--- NOTE | ~2023-07-04 | US_ITS ---
EXAMINATION: US renal BI DATE: 07/04/2023 15:20 INDICATION: R80.9 - Proteinuria, unspecified TECHNIQUE: Multiple grayscale and Doppler ultrasound images of the kidneys were obtained. COMPARISON: CT 02/19/2023. FINDINGS: The right kidney measures 10.3 x 5.1 x 5.6 cm. The left kidney measures 10.4 x 5.7 x 4.8 cm. The kidn eys demonstrate normal parenchymal echogenicity. 5 cm simple left upper pole cyst. There is no hydron ephrosis. The bladder is normal. IMPRESSION: Unremarkable renal sonogram findings. Reviewed, dictated and finalized at location K. UCT MARKETING DIRECTOR
== END 2023-07-04 14:43 | disposition home or self-care (01) ==
PROVIDERS: PCP Internal Medicine; Visit Provider Internal Medicine Nephrology
DX: R80.9 Proteinuria, unspecified (principal)
CPT/HCPCS: 76775

== ENCOUNTER 2024-06-04 07:17 | Outpatient (CLI) | payer MEDICARE, SELFPAY ==
--- NOTE | ~2024-06-04 | CT_ITS ---
CT Scan of the Chest without Contrast: Clinical Indication: Lung cancer screening, nicotine dependence Technique: Contiguous sections were acquired throughout the chest without intravenous contrast. Dose reduction technique was used on this scan by utilizing automated exposure control and iterative recon struction technique. The dose-length product (DLP) was 185.25 mGy-cm. COMPARISON: 11/26/2022 Findings: There is no evidence of any significant mediastinal, hilar or axillary lymphadenopathy. Calcified lef t mediastinal lymph node noted. Coronary artery calcifications are present. There is no evidence of pleural or pericardial effusion. Moderate emphysema present, especially right upper lobe. There are mild bibasilar chronic interstitia l changes. Calcified left lower lobe granuloma present. Images through the upper abdomen reveal no abnormalities. Impression: Lung RADS 2: Benign appearance. 12 month follow-up screening CT advised. Reviewed, dictated and finalized at [facility]. E MONITORING Impression: Lung RADS 2: Benign appearance. 12 month follow-up screening CT advised.
--- NOTE | ~2024-06-04 | US_ITS ---
EXAMINATION: US carotid duplex BI DATE: 06/04/2024 07:41 INDICATION: Other specified signs and symptoms involving the circulatory system. Carotid atherosclero sis. TECHNIQUE: Grayscale, color Doppler, and pulsed Doppler images of the cervical carotid arteries were obtained. The degree of vessel stenosis is placed in one of the following categories: normal, <50%, 5 0-69%, >=70% but less than near-occlusion, near-occlusion, or total occlusion. Note that percent sten osis relative to normal distal artery lumen diameter is indirectly measured from velocity measurement s as described by Frank, et al. Radiology 2003; [id number]. COMPARISON: None. FINDINGS: RIGHT: The right common carotid artery (CCA) peak systolic velocity (PSV) is 57 cm/s. The right internal car otid artery (ICA) PSV is 46 cm/s. The right ICA end-diastolic velocity (EDV) is 12 cm/s. The right IC A/CCA PSV ratio is 0.8. Grayscale and color Doppler images yield an estimate of <50% diameter reducti on from plaque in the ICA. The external carotid artery (ECA) PSV is 53 cm/s. There is antegrade flow in the right vertebral artery. LEFT: The left CCA PSV is 77 cm/s. The left ICA PSV is 56 cm/s. The left ICA EDV is 16 cm/s. The left ICA/C CA PSV ratio is 0.7. Grayscale and color Doppler images yield an estimate of <50% diameter reduction from plaque in the ICA. The ECA PSV is 73 cm/s. There is antegrade flow in the left vertebral artery. IMPRESSION: 1. <50% stenosis in the right internal carotid artery. 2. <50% stenosis in the left internal carotid artery. Reviewed, dictated and finalized at location B. ERY STORE COURTESY CLERK
== END 2024-06-04 07:18 | disposition home or self-care (01) ==
LOC: CHSIMG 07:22
PROVIDERS: PCP Internal Medicine; Visit Provider Internal Medicine
DX: Z12.2 Encounter for screening for malignant neoplasm of respiratory organs (principal); Z87.891 Personal history of nicotine dependence; I65.23 Occlusion and stenosis of bilateral carotid arteries
CPT/HCPCS: 71271; 93880

== ENCOUNTER 2025-07-12 09:48 | Outpatient (CLI) | payer MEDICARE, SELFPAY ==
--- NOTE | ~2025-07-12 | CT_ITS ---
CT lung screening INDICATION: Nicotine dependence, screening COMPARISON: None. TECHNIQUE: CT examination of the entire thorax without contrast was performed using low dose technique. Thin section axial, sagittal and coronal images were included to increase sensitivity for small lung nodules. FINDINGS: PULMONARY NODULES: There are no suspicious noncalcified pulmonary nodule. OTHER PULMONARY FINDINGS: There are interstitial groundglass opacities bilaterally. There are paraseptal and centrilobular emphysema. No pathologically enlarged lymph nodes are present. Normal heart size. UPPER ABDOMEN AND PERIPHERAL SOFT TISSUE: 5.9 cm left renal cyst is noted. OSSEOUS STRUCTURES: Bone window shows no aggressive blastic or lytic lesions. IMPRESSION: 1. Lung-RADS category 1: No nodules or definitely benign nodules. Recommendations: 1 or 2: Annual screening with low-dose CT in 12 months. 2. emphysematous changes are present. All CT scans at this facility are performed using low dose modulation techniques as appropriate to perform exam including the following: automated exposure control; use of iterative reconstruction technique; adjustment of the mA and/or kV according to patient size (this includes techniques or standardized protocols for targeted exams where dose is matched to indication/reason for exam). Reviewed, dictated and finalized at location [facility] IMPRESSION: 1. Lung-RADS category 1: No nodules or definitely benign nodules. Recommendations: 1 or 2: Annual screening with low-dose CT in 12 months. 2. emphysematous changes are present. All CT scans at this facility are performed using low dose modulation techniqu es as appropriate to perform exam including the following: automated exposure c ontrol; use of iterative reconstruction technique; adjustment of the mA and/or kV according to patient size (this includes techniques or standardized protocol s for targeted exams where dose is matched to indication/reason for exam).
--- OUTSIDE RECORDS SUMMARY | 2025-07-12 10:13 | XMS_ITS | Clinical Summary ---
Author Organization [facility] Address [address] [place] [address] Care Team Providers Care Bioinformatics Associate Name Role Phone Chace Aleman MD Primary Care Provider [phone] Source Comments [facility],non-owned Affiliates and Associated Physician Practices is amultiple site organization consisting of ambulatory clinics and hospital sitesin [place], [place], [place] and [place]. This disclosure is being madepursuant to the Care Everywhere program and may not contain all information available regarding this patient. Last updated 18.[facility] Allergies No known active allergies Medications * Be aware that medications may not be up to date on this document. Alwaysverify current medications with the patient. Eliquis 5 MG tablet Take 1 (one) tablet by mouth every 12 hours 5 Active aspirin EC (Ecotrin) 81 MG tablet Take 1 (one) tablet by mouth once daily Active atorvastatin (Lipitor) 80 MG tablet Take 1 (one) tablet by mouth once daily Active buPROPion XL 24hr (Wellbutrin-XL) 300 MG tablet Take 1 (one) tablet by mouth once daily 5 Active cyanocobalamin (Vitamin B-12) 1000 MCG tablet Take 1 (one) tablet by mouth once daily Active isosorbide mononitrate CR 24hr (Imdur) 30 MG tablet 1 (one) tablet once daily Active lisinopril (Prinivil; Zestril) 2.5 MG tablet Take 1 (one) tablet by mouth once daily Active [place]-3 1000 MG once daily Act pierre pantoprazole EC (Protonix) 40 MG tablet Take 1 (one) tablet by mouth once daily Active sulfamethoxazole -trimethoprim (Bactrim; Septra) 400-80 MG tablet Take 1 (one) tablet by mouth once daily Active tamsulosin (Flomax) 0.4 MG capsule TAKE 2 CAPSULES BY MOUTH EVERY DAY 30 MINUTES AFTER THE SAME MEAL Active Active Problems No known active problems Encounters Date Type Department Care Team Description 06/08/2025 1:00 PM PIECER Office Visit [facility] - Ophthalmology [address] [place] [phone] Gonzalo Keller MD Diplopia (Primary Dx); Hypertropia of right eye; Exotropia 06/08/2025 Travel 04/29/2025 7:08 AM CDT - 04/29/2025 11:59 PM CDT Hospital Encounter [facility] [address] [place] [address] Costa Triplett MD Discharge Disposition: Home or Self Care 04/29/2025 Travel 04/21/2025 2:00 PM CDT Office Visit [facility] - Ophthalmology [address] [place] [phone] Costa Triplett MD Diplopia (Primary Dx); Pseudophakia 04/21/2025 Travel from Last 3 Months Social History Tobacco Use Types Packs/Day Years Used Date Smoking Tobacco: Never Assessed PHQ-2 Answer Date Recorded Patient Health Questionnaire-2 Score 0 04/21/2025 Sex and Gender Information Value Date Recorded Sex Assigned at Not on file Legal Sex Male 5:51 AM 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 Gender Identity Not on file Sexual Orientation Not on file Last Filed Vital Signs Vital Sign Reading Time Taken Comments Blood Pressure - - Pulse - - Temperature - - Respiratory Rate - - Oxygen Saturation - - Inhaled Oxygen Concentration - - Weight 102.1 kg (225 lb) 05/11/2014 11:00 AM CDT Height 180.3 cm (5' 11) 05/11/2014 11:00 AM CDT Body Mass Index 31.38 05/11/2014 11:00 AM CDT Plan of Treatment Upcoming Encounters Date Type Department Care Team (Late st Contact Info) Description 10/11/2025 1:00 PM CDT Office Visit [facility] - Ophthalmology [facility] [place] [address] Gonzalo Keller MD [facility] [facility] [place] [address] Health Maintenance Due Date Last Done Comments COLOGUARD (AGES 45-75) - COL ON CA SCREENING 1959 COLON MONITORING 1959 COLONOSCOPY - COLON CA SCREENING 1959 CT COLONOGRAPHY - COLON CA SCREENING 1959 Colorectal Cancer Screening 1959 FIT - COLON CA SCREENING 1959 FLEX SIG - COLON CA SCREENING 1959 HEPATITIS C SCREENING 01/07/1977 DTAP/TDAP/TD VACCINES (1 - Tdap) 1978 PNEUMOCOCCAL VACCINE 50+ (1 of 1 - PCV) 2009 ZOSTER VACCINE (1 of 2) 2009 MEDICARE AWV CALENDAR YEAR 2024 COVID-19 VACCINE (3 - 2024-2 6 season) 2025 10/30/2020, 10/09/2020 Respiratory Syncytial Virus (RSV) Vaccine Pt: or over 60 yrs (1 - 1-dose 75+ series) 2034 DEPRESSION SCREENING Completed 04/21/2025 INFLUENZA VACCINE Completed 06/03/2025, 05/02/2015, 04/21/2014 HEPATITIS B VACCINE Aged Out No longe r eligible based on patient's age to complete this topic HIB VACCINE Aged Out No longer eligi ble based on patient's age to complete this topic HPV VACCINE Aged Out No longer eligi ble based on patient's age to complete this topic MENINGOCOCCAL (Group B) VACCINE SHARED DECISION-MAKING Aged Out No longer eligible based on patient's age to complete this topic MENINGOCOCCAL GROUPS A/C/Y/W VACCINE Aged Out No longer eligible b ased on patient's age to complete this topic Procedures Procedure Name Priority Date/Time Associated Diagnosis Comments CT ANGIO BRAIN AND NECK Routine 04/29/2025 7:36 AM CDT Diplopia ISTAT CREATININE Routine 04/29/2025 7:18 AM CDT from Last 3 Months Results * CT Angio Brain And Neck (04/29/2025 7:36 AM CDT) Anatomical Region Laterality Modality Head Computed Tomogra phy 04/29/2025 8:03 AM CDT Impressions 04/29/2025 11:16 AM CDT IMPRESSION: 1. No acute intracranial hemorrhage. 2. No large arterial occlusions or significant stenoses identified in the head or neck. 3. No CT evidence to explain patient's symptoms. Please note that CT is insensitive to nonhemorrhagic small infarcts particularly in the infratentorial region. Consider MRI for further evaluation if clinically warranted. Viz.AI was used for large vessel occlusion detection. The report is dictated by Noreen Cox Dr, MD (vice president payer) > Dictated by Citrus Fruit Packer I, Cesar Corrales MD have personally reviewed and interpreted this examination/study. > Interpreting Provider: Cesar Corrales MD on 04/29/2025 11:16 AM Narrative 04/29/2025 11:16 AM CDT PROCEDURE: CT ANGIO BRAIN AND NECK, DATE/TIME OF EXAM: 04/29/2025 7:37 AM, LOCATION [facility] INDICATION: H53.2: Diplopia ADDITIONAL CLINICAL INFORMATION: Ordering Provider Reason For Exam: Technologist Note: Additional: None. EXAMINATION: 1. Computed tomographic (CT) angiography of the head without and with contrast 2. CT angiography of the neck with contrast CONTRAST: IOPAMIDOL 76 % IV SOLN:100 mL TECHNIQUE: CT of the head was performed without contrast according to standard protocol. Then CT angiography of the head and neck was obtained after the uneventful administration of 100 mL Isovue-370 intravenous contrast. Three dimensional postprocessing was performed by the technologist and sent to the workstation for review. Stenosis measurements are based on NASCET criteria. CT dose reduction technique was used, including Automated Exposure Control. COMPARISON: None FINDINGS: Non-angiographic findings: No acute intra- or extra-axial fluid collections are identified. The ventricles are of normal size, shape, and morphology. The basilar cisterns are patent. No mass effect or midline shift is seen. The aguilar-white matter differentiation is normal. Periventricular white matter hypoattenuation is indicative of chronic small vessel ischemic disease. There is vascular calcification of the carotid siphons. Post bilateral cataract surgeries, otherwise the visualized portions of the orbits, paranasal sinuses, and mastoids appear normal. No acute fracture is identified. No soft tissue abnormalities are identified in the neck. Angiographic findings: The visible aortic arch appears normal. The configuration of the brachiocephalic vessels is typical. The innominate artery and both subclavian arteries appear normal. There is atherosclerotic disease of the right carotid bifurcation and origin of the right internal carotid artery with less than 50 percent focal stenosis by NASCET criteria. The right common and internal carotid arteries otherwise appear normal. The left common and internal carotid arteries as well as the left carotid bifurcation appear normal. Other than mild focal stenosis at their origins due to atherosclerotic disease, the cervical vertebral arteries appear normal. The distal internal carotid arteries appear normal. The anterior and middle cerebral arteries appear normal. The distal vertebral arteries appear normal. The basilar artery and posterior cerebral arteries appear normal. No aneurysms, vascular occlusions, or intracranial stenoses are identified. Degenerative changes in the cervical spine most prominent at C5-C6 level with mild central canal stenosis. Procedure Note Cesar Corrales MD - 04/29/2025 PROCEDURE: CT ANGIO BRAIN AND NECK, DATE/TIME OF EXAM: 04/29/2025 7:37 AM, LOCATION [facility] INDICATION: H53.2: Diplopia ADDITIONAL CLINICAL INFORMATION: Ordering Provider Reason For Exam: Technologist Note: Additional: None. EXAMINATION: 1. Computed tomographic (CT) angiography of the head without and with contrast 2. CT angiography of the neck with contrast CONTRAST: IOPAMIDOL 76 % IV SOLN:100 mL TECHNIQUE: CT of the head was performed without contrast according to standard protocol. Then CT angiography of the head and neck was obtained after the uneventful administration of 100 mL Isovue-370 intravenous contrast. Three dimensional postprocessing was performed by the technologist and sent to the workstation for review. Stenosismeasurements are based on NASCET criteria. CT dose reduction technique was used, including Automated Exposure Control. COMPARISON: None FINDINGS: Non-angiographic findings: No acute intra- or extra-axial fluid collections are identified. The ventricles are of normal size, shape, and morphology. The basilarcisterns are patent. No mass effect or midline shift is seen. The aguilar-whitematter differentiation is normal. Periventricular white matter hypoattenuationis indicative of chronic small vessel ischemic disease. There is vascular calcification of the carotid siphons. Post bilateral cataract surgeries, otherwise the visualized portions of the orbits, paranasal sinuses, and mastoids appear normal. No acute fracture is identified. No soft tissue abnormalities are identified in the neck. Angiographic findings: The visible aortic arch appears normal. The configuration of the brachiocephalic vessels is typical. The innominate artery and both subclavian arteries appear normal. There is atherosclerotic disease ofthe right carotid bifurcation and origin of the right internal carotidartery with less than 50 percent focal stenosis by NASCET criteria. The right common and internal carotid arteries otherwise appear normal. The left common and internal carotid arteries as well as the left carotid bifurcation appear normal. Other than mild focal stenosis at theirorigins due to atherosclerotic disease, the cervical vertebral arteries appear normal. The distal internal carotid arteries appear normal. The anterior andmiddle cerebral arteries appear normal. The distal vertebral arteries appear normal. The basilar artery and posterior cerebral arteries appearnormal. No aneurysms, vascular occlusions, or intracranial stenoses areidentified. Degenerative changes in the cervical spine most prominent at C5-C6 level with mild central canal stenosis. IMPRESSION: 1. No acute intracranial hemorrhage. 2. No large arterial occlusions or significant stenoses identified inthe head or neck. 3. No CT evidence to explain patient's symptoms. Please note that CT is insensitive to nonhemorrhagic small infarcts particularly in the infratentorial region. Consider MRI for further evaluation if clinically warranted. Viz.AI was used for large vessel occlusion detection. The report is dictated by Noreen Cox Dr, MD (vice president payer) > Dictated by Citrus Fruit Packer I, Cesar Corrales MD have personally reviewed and interpreted this examination/study. > Interpreting Provider: Cesar Corrales MD on 04/29/2025 11:16 AM us Costa Triplett MD CT ORDERABLES Final Result * (ABNORMAL) ISTAT CREATININE (04/29/2025 7:18 AM CDT) Creatinine POCT 1.00 0.60 - 1.30 mg/dL 04/29/2025 7:19 AM CDT [facility] eGFR by CKD-EPI 83(L) >90 mL/min/1.7 3 m2 04/29/2025 7:19 AM CDT [facility] Sample iSTAT DIANE 04/29/2025 7:19 AM CDT [facility] Blood BLOOD SPECIMEN / Unknown 04/29/2025 7:18 AM CDT 04/29/2025 7:19 AM CDT us Costa Triplett MD LAB - POINT OF CARE ORDERABLE S Final Result [facility] [address] [place] [address], [facility] [phone] from Last 3 Months Insurance [facility] MANAGED MEDICARE ADV Care Teams Bioinformatics Associate Relationship Specialty Start Date End Date Chace Aleman MD PCP - General Internal Medicine 05/11/14
--- OUTSIDE RECORDS SUMMARY | 2025-07-12 10:13 | XMS_ITS | Encounter Summary ---
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 Historical Provider [facility] MARIA FERNANDA SALCEDO Final Result documented in this encounter Visit Diagnoses Not on filedocumented in this encounter Care Teams Central Stores Attendant Relationship Specialty Start Date End Date Referring, Unknown, PCP - General 02/19/23 02/19/23 Chace Aleman MD [address], [place] [id number] PCP - General Internal Medicine 02/20/23 documented as of this encounter
--- OUTSIDE RECORDS SUMMARY | 2025-07-12 10:13 | XMS_ITS | Clinical Summary ---
Author Organization [facility], [place] [facility] Address [address] [place] [address] Care Team Providers Care Dye Beck Reel Operator Name Role Phone Chace Aleman MD Primary Care Provider [phone] Allergies No known active allergies Medications isosorbide mononitrate ER (IMDUR) 30 mg 24 hr tablet 1 tablet (30 mg total) daily Active atorvastatin (Lipitor) 80 mg tablet Take 0.5 tablets (40 mg total) by mouth nightly Active pantoprazole DR (PROTONIX) 40 mg EC tablet Take 1 tablet (40 mg total) by mouth daily 3 Active tamsulosin (FLOMAX) 0.4 mg extended release capsule Take 1 capsule (0.4 mg total) by mouth 2 (two) times a day 3 Active buPROPion XL (WELLBUTRIN XL) 300 mg 24 hr tablet Take 1 tablet (300 mg total) by mouth daily 3 Active methenamine (HIPREX) 1 gram tablet Take 1 tablet (1 g total) by mouth 2 (two) times a day with meals 3 Active aspirin (Aspir-81) 81 mg enteric coated tablet Take 1 tablet (81 mg total) by mouth daily Active omega 0-ita-exe-fish oil (Fish OiL) 1,000 mg (120 mg-180 mg) capsule daily Active acetaminophen (TYLENOL) 325 mg tabletIndication s:Fever,Pain Take 2 tablets (650 mg total) by mouth every 4 (four) hours as needed for pain, headaches or fever 30 tablet 3 Active lisinopriL (PRINIVIL,ZESTRI L) 2.5 mg tablet Take 1 tablet (2.5 mg total) by mouth daily Active methocarbamoL (ROBAXIN) 500 mg tablet Take 1 tablet (500 mg total) by mouth every 8 (eight) hours as needed for muscle spasms 15 tablet 3 Active nitrofurantoin monohydrate (MACROBID) 100 mg capsule 4 Active cyanocobalamin (Vitamin B-12) 1,000 mcg tabletIndication s:Prevention of Vitamin B12 Deficiency Take 1 tablet (1,000 mcg total) by mouth daily Active sulfamethoxazole -trimethoprim (BACTRIM) 400-80 mg per tablet 4 Active Eliquis 5 mg tablet TAKE 1 TABLET BY MOUTH EVERY 12 HOURS 200 tablet 1 5 Active Active Problems Problem Noted Date Diagnosed Date Primary hypertension 06/09/2025 Assessment & Plan (06/09/2025 11:19 AM EXTRACORPOREAL CIRCULATION SPECIALIST): Stable continue lisinopril Left leg pain 04/16/2023 Atheroscler nonautolg biolog ical bypass graft left leg w/rest pain 04/16/2023 Acute lower limb ischemia 04/16/2023 Benign prostatic hyperplasia without lower urinary tract symptoms 02/27/2023 Tobacco abuse 02/26/2023 Preoperative clearance 02/26/2023 Current every day smoker 02/25/2023 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 Overall doing well since surgery. Denies any rest pain to the left lower extremity. We will remove ceci today. Baseline arterial duplex ordered. We will plan for repeat evaluation in 3 months. Assessment & Plan (02/20/2023 2:56 PM CDT): Appears to have a thrombosed left popliteal artery aneurysms, not in acute limb ischemia however life-limiting claudication/ischemic rest pain. Discussed at length with the patient management options including angiography with possible catheter directed thrombolysis with further management being stenting versus open bypass. I will start him on full-dose anticoagulation and plan for angiogram on Saturday. Risks benefits alternatives discussed, risks including bleeding, infection, perforation, contrast induced nephropathy, dissection, thrombosis, distal embolization, specifically as well a higher risk of limb loss. He wished to proceed. We discussed if his symptoms worsen from now until Saturday he needs to go to the emergency room immediately. Aneurysm of left popliteal artery 02/20/2023 Assessment & Plan (12/03/2024 11:41 AM CDT): Fem-pop remains patent. The triphasic waveforms and normal ABIs. Continue aspirin statin and Eliquis follow-up in 6 months for routine surveillance with lower extremity arterial duplex. 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 LAD has a mid-60% stenosis with a negative FFR. Last stress test done in the 2013 is negative for ischemia. Coronary atherosclerosis 12/07/2015 PVD (peripheral vascular disease) 12/07/2015 Overview (02/20/2023): With the right lower extremity bypass Assessment & Plan (06/09/2025 11:19 AM EXTRACORPOREAL CIRCULATION SPECIALIST): Bilateral fem-pop bypasses are widely patent. Continue risk factor modification with ASA Eliquis statin therapy. Follow up in 6 months repeat noninvasives testing. Assessment & Plan (12/03/2024 11:42 AM CDT): Right fem-pop bypass also remains patent. Triphasic waveforms with normal ABIs. The proximal anastomosis is measuring 2.13 x 1.8 cm. Continue routine surveillance in 6 months. Continue aspirin Eliquis an statin therapy. Assessment & Plan (06/04/2024 11:23 AM EXTRACORPOREAL CIRCULATION SPECIALIST): Bilateral patent fem-pop bypasses. The right proximal anastomosis is aneurysmal measuring 1.9 x 2.1 cm the left common femoral artery at the anastomosis is measuring 1.4 x 1.5 cm. Stable from previous. Continue aspirin and Eliquis and statin therapy. Follow-up in 6 months for routine surveillance with lower extremity arterial duplex Assessment & Plan (02/20/2023 2:56 PM CDT): Continue risk factor modification with ASA statin therapy. Mixed hyperlipidemia 12/07/2015 Assessment & Plan (06/09/2025 11:19 AM EXTRACORPOREAL CIRCULATION SPECIALIST): Stable continue Lipitor Resolved Problems Problem Noted Date Diagnosed Date Resolved Date Mixed hyperlipidemia 02/20/2023 023 Assessment & Plan (02/20/2023 2:55 PM CDT): Stable continue Lipitor 80 mg. Former smoker 04/16/2016 11/25/2023 Overview (02/20/2023): Currently uses nicotine free vapor Encounters Date Type Department Care Team Description 06/09/2025 9:00 AM EXTRACORPOREAL CIRCULATION SPECIALIST Office Visit [facility] Vascular at [address] [address] Nestor Handy MD PVD (peripheral vascular disease) (Primary Dx); Popliteal aneurysm; Mixed hyperlipidemia; Primary hypertension 06/09/2025 Orders Only [facility] V[facility] at [address] [place] [address] Nestor Handy MD Aneurysm of left popliteal artery (Primary Dx); PVD (peripheral vascular disease); Aftercare following surgery of the circulatory system 06/07/2025 10:00 AM EXTRACORPOREAL CIRCULATION SPECIALIST Ancillary Procedure [facility] Vascular and Vein Surgery at [address] [place] [address] Aftercare following surgery of the circulatory system; Atherosclerosis of picayune artery of both lower extremities with intermittent claudication 06/07/2025 10:00 AM EXTRACORPOREAL CIRCULATION SPECIALIST Ancillary Procedure [facility] Vascular and Vein Surgery at [address] [place] [address] Aftercare following surgery of the circulatory system; Atherosclerosis of picayune artery of both lower extremities with intermittent claudication from Last 3 Months Surgical History Surgery Date Site/Laterality Comments FEMORAL ARTERY - FEMORAL ART IRVIN BYPASS GRAFT 07/15/2011 - 07/14/[address] Amato VASCULAR SURGERY CARDIAC CATHETERIZATION FEMORAL ARTERY - POPLITEAL ARTERY BYPASS GRAFT 02/28/2023 Left AORTIC ILIAC FEMORIAL ANGIOG ROMEO INTERVENTION 04/18/2023 Left LLE ANGIOGRAM Medical History Medical History Date Comments Bladder cancer (HCC) 2020 Cataracts, bilateral 2022 PAD (peripheral artery disease) Social History Tobacco Use Types Packs/Day Years Used Date Smoking Tobacco: Former Cigarettes Tobacco Cessation:Counseling Given: Not Answered Social Connection and Isolation Panel Answer Date Recorded In a typical week, how many times do you talk on the phone with family, friends, or neighbors? Three times a week 04/18/2023 How often do you get togethe r with friends or relatives? Three times a week 04/18/2023 How often do you attend chur ch or congregation services? Never 04/18/2023 Do you belong to any clubs o r organizations such as tenriism groups, unions, fraternal or athletic groups, or school groups? No 04/18/2023 How often do you attend meet ings of the clubs or organizations you belong to? Never 04/18/2023 Are you , , di vorced, , never , or living with a partner? 04/18/2023 AUDIT-C Answer Date Recorded Q1: How often do you have a drink containing alcohol? Never 04/17/2023 Q2: How many drinks containi ng alcohol do you have on a typical day when you are drinking? Patient does not drink Q3: How often do you have si x or more drinks on one occasion? Never 04/17/2023 Overall Financial Resource Strain (CARDIA) Answe r Date Recorded How hard is it for you to pa y for the very basics like food, housing, medical care, and heating? Not hard at all 04/18/2023 Hunger Vital Sign Answer Date Recorded Within the past 12 months, y ou worried that your food would run out before you got the money to buy more. Never true 04/18/20 23 Within the past 12 months, t he food you bought just didn't last and you didn't have money to get more. Never true 04/18/2023 PRAPARE - Transportation Answer Date Re corded In the past 12 months, has l ack of transportation kept you from medical appointments or from getting medications? No 11/2022 In the past 12 months, has l ack of transportation kept you from meetings, work, or from getting things needed for daily living? No 04/18/2023 Housing Stability Vital Sign Answer Hayden e Recorded In the last 12 months, was t here a time when you were not able to pay the mortgage or rent on time? No 04/18/2023 In the last 12 months, how many places have you lived? 1 04/18/2023 In the last 12 months, was t here a time when you did not have a steady place to sleep or slept in a penitentiary (including now)? No 04/18/2023 Personal Safety Answer Date Recorded Have you ever been in or are you currently in a harmful physical or emotional relationship or is someone making you feel afraid or unsafe? Denies 04/17/2023 Sex and Gender Information Value Date Recorded Sex Assigned at Not on file Legal Sex Male 11:08 AM EXTRACORPOREAL CIRCULATION SPECIALIST Gender Identity Male 02/21/2023 7:30 AM CDT Sexual Orientation Not on file Last Filed Vital Signs Vital Sign Reading Time Taken Comments Blood Pressure 151/76 06/09/2025 8:40 AM EXTRACORPOREAL CIRCULATION SPECIALIST Pulse 72 06/09/2025 8:40 AM EXTRACORPOREAL CIRCULATION SPECIALIST Temperature 36.5 C (97.7 F) 04/19/2023 11:21 AM CDT Respiratory Rate 18 04/19/2023 11:21 AM CDT Oxygen Saturation 98% 06/09/2025 8:40 AM EXTRACORPOREAL CIRCULATION SPECIALIST Inhaled Oxygen Concentration - - Weight 95.3 kg (210 lb) 06/09/2025 8:40 AM EXTRACORPOREAL CIRCULATION SPECIALIST Height 177.8 cm (5' 10) 06/09/2025 8:40 AM EXTRACORPOREAL CIRCULATION SPECIALIST Body Mass Index 30.13 06/09/2025 8:40 AM EXTRACORPOREAL CIRCULATION SPECIALIST Plan of Treatment Health Maintenance Due Date Last Done Comments Colon Cancer Screening-Colonoscopy 1960 Depression Screening 1960 Hepatitis C Screening 1960 Hepatitis B Screening 1977 Prostate Cancer Screening-PSA 10/08/2018 10/08/2016 Pneumococcal vaccine 65+ (3 of 3 - PCV20 or PCV21) 05/03/2022 05/03/2017, 2015 Abdominal Aortic Aneurysm (A AA) Screen 01/13/2024 04/16/2023 Well Visit 65+ 01/13/2024 Fall Risk Assessment 04/18/2024 04/18/2023 Covid-19 Vaccine (6 - 2024-2 6 season) 2025 04/04/2022, 10/25/2021, 06/02/2021, Additional history exists Influenza Vaccine (#1) 2025 , 05/11/2021, 04/18/2020, Additional history exists DTaP/Tdap/Td Vaccine (2 - Td or Tdap) 11/06/2032 11/06/2022 Zoster Vaccine Completed 07/24/2018, 02/27/2018 Medical Devices Implanted Type Area Armed [employer] Professional Device Identifier Shelf Expiration Date Model / Serial / Lot [employer]l [employer] 6mm 80cm 60cm Removable Ring Stretch Thin Wall Graft [id number] - [id number] - [id number] Implanted:Qty: 1 on 02/28/2023 by Nestor Handy MD at [facility] Left: Leg Wl [employer] [id number] 06/18/2026 [id number] / [id number] / Procedures Procedure Name Priority Date/Time Associated Diagnosis Comments VL US ARTERIAL DUPLEX LOWER EXTREMITY BILATERAL Schedule Routine, Read Routine (OP Routine) 06/07/2025 11:41 AM EXTRACORPOREAL CIRCULATION SPECIALIST Aftercare following surgery of the circulatory system Atherosclerosis of picayune artery of both lower extremities with intermittent claudication US LESLEY Schedule Routine, Read Routine (OP Routine) 06/07/2025 11:41 AM EXTRACORPOREAL CIRCULATION SPECIALIST Aftercare following surgery of the circulatory system Atherosclerosis of picayune artery of both lower extremities with intermittent claudication CTA ABDOMINAL AORTA AND BILATERAL ILIOFEMORAL RUNOFF ED 04/16/2023 3:52 PM CDT PSA, TOTAL Routine 10/08/2016 9:13 AM CDT from Last 3 Months or Most Recently Relevant to Health Maintenance Results * US Arterial Duplex Lower Extremity Bilateral (06/07/2025 11:41 AM EXTRACORPOREAL CIRCULATION SPECIALIST) Anatomical Region Laterality Modality Vascular Bilateral Ultrasound 06/07/2025 10:0 1 AM EXTRACORPOREAL CIRCULATION SPECIALIST Narrative 06/07/2025 1:28 PM EXTRACORPOREAL CIRCULATION SPECIALIST Vascular & Vein Surgery [address] [facility] [place] [address] Lower Extremity Arterial Duplex Report Patient Name: GINO PARKS E : 1960 (65y 4m) Sex: M Study Date: 06/07/2025 10:01:22 AM Ht(Inch): Wt(Lb): BSA: Powder Coater: SALO Location: [facility] Order Provider: NESTOR HANDY Quality: Adequate Ref Provider: NESTOR HANDY PROCEDURES: Arterial Report: A non-invasive vascular imaging study of the bilateral lower extremity arteries and bypass grafts was performed using B-mode ultrasound, color flow, and spectral Doppler. INDICATIONS: S/P BA Lt FELT COVERER, fem-pop BPG & CRAB PICKER 04/18/23; S/P lysis cath Lt fem-pop BPG 04/17/23; S/P lig. Lt pop aneurysm, Lt fem-pop BPG 02/28/23; S/P Rt fem-pop BPG 2012. HISTORY: HLD. Bladder CA. Former smoker. COMPARISONS: The previous exam was completed on 11/23/24: patent BLE BPGs. Rt prox anast 2.13 x 1.80 cm, Lt prox anast 1.81 x 2.1 cm. Compared to prior there is increase in velocity on the right. MEASUREMENTS: Right Value Left Value Rt FELT COVERER Dst PSV 153.00 cm/sec Lt FELT COVERER Dst PSV 172.00 cm/sec Rt Profunda Prx PSV 286.00 cm/sec Lt Ant Tibial Prx PSV 38.00 cm/sec Rt SFA Prx PSV 219.00 cm/sec Lt Post Tibial Prx PSV 93.00 cm/sec Rt Pop Prx PSV 84.00 cm/sec Lt Post Tibial Mid PSV 88.00 cm/sec Rt Pop Dst PSV 80.00 cm/sec Lt Peroneal Prx PSV 71.00 cm/sec Rt Ant Tibial Prx PSV 80.00 cm/sec Lt Peroneal Mid PSV 67.00 cm/sec Rt Post Tibial Prx PSV 168.00 cm/sec Rt Post Tibial Mid PSV 95.00 cm/sec Rt Peroneal Prx PSV 69.00 cm/sec Rt Peroneal Mid PSV 66.00 cm/sec GRAFTS: Right Value Left Value Location Rt SFA-Pop Location Lt fem-pop Rt BPG Inflow PSV 136.00 cm/sec Lt BPG Inflow PSV 77.00 cm/sec Rt Anast Prx PSV 66.00 cm/sec Lt Anast Prx PSV 76.00 cm/sec Rt BPG Prx PSV 48.00 cm/sec Lt BPG Prx PSV 51.00 cm/sec Rt BPG Mid PSV 55.00 cm/sec Lt BPG Mid PSV 55.00 cm/sec Rt BPG Dst PSV 101.00 cm/sec Lt BPG Dst PSV 41.00 cm/sec Rt Anast Dst PSV 74.00 cm/sec Lt Anast Dst PSV 52.00 cm/sec Rt BPG Outflow PSV 58.00 cm/sec Lt BPG Outflow PSV 67.00 cm/sec FINDINGS: Right: Triphasic arteries include the right common femoral artery, profunda femoral artery, proximal superficial femoral artery, popliteal artery, anterior tibial artery, posterior tibial artery and peroneal artery. Increased velocities noted of the right profunda femoral artery and proximal superficial femoral artery. Right popliteal artery measures 1.17 x 1.12 cm. Left: Triphasic arteries include the left common femoral artery, anterior tibial artery, posterior tibial artery and peroneal artery. Normal velocities noted of the left common femoral artery, anterior tibial artery, posterior tibial artery and peroneal artery. Bypass Graft 1: The bypass graft is located in the right superficial femoral to popliteal artery. Patent lower extremity bypass graft with no evidence of stenosis. Proximal anastomosis measures 2.06 x 1.86 cm. Bypass Graft 2: The bypass graft is located in the left femoral to popliteal artery. Patent lower extremity bypass graft with no evidence of stenosis. Proximal anastomosis measures 1.87 x 1.98 cm. CONCLUSION: 1. There is moderate 50-75% stenosis in the right profunda femoral artery. 2. Right superficial femoral artery to popliteal bypass is widely patent. No evidence of stenosis. 3. Left femoral artery to popliteal bypass is widely patent, no evidence of stenosis. ATTESTATION: I have reviewed and interpreted the pertinent images and measurements of this study. I attest to the conclusions in the final report that is provided above. Electronically Signed By: Nestor Handy MD 06/07/2025 12:55:46 PM EXTRACORPOREAL CIRCULATION SPECIALIST Procedure Note Nestor Handy MD - 06/07/2025 Vascular & Vein Surgery [address] [place] [address]. [place] [address] Lower Extremity Arterial Duplex Report Patient Name: GINO PARKS E : 1960 (65y 4m) Sex: M Study Date: 06/07/2025 10:01:22 AM Ht(Inch): Wt(Lb): BSA: Powder Coater: SALO Location: [facility] Order Provider: NESTOR HANDY Quality: Adequate Ref Provider: NESTOR HANDY PROCEDURES: Arterial Report: A non-invasive vascular imaging study of the bilaterallower extremity arteries and bypass grafts was performed using B-mode ultrasound, colorflow, and spectral Doppler. INDICATIONS: S/P BA Lt FELT COVERER, fem-pop BPG & CRAB PICKER 04/18/23; S/P lysis cath Lt fem-pop BPG 04/17/23; S/P lig. Lt pop aneurysm, Lt fem-pop BPG 02/28/23; S/P Rt fem-pop BPG 2012. HISTORY: HLD. Bladder CA. Former smoker. COMPARISONS: The previous exam was completed on 11/23/24: patent BLE BPGs. Rt prox anast2.13 x 1.80 cm, Lt prox anast 1.81 x 2.1 cm. Compared to prior there is increase invelocity on the right. MEASUREMENTS: Right Value Left Value Rt FELT COVERER Dst PSV 153.00 cm/sec Lt FELT COVERER Dst PSV 172.00 cm/sec Rt Profunda Prx PSV 286.00 cm/sec Lt Ant Tibial Prx PSV 38.00 cm/sec Rt SFA Prx PSV 219.00 cm/sec Lt Post Tibial Prx PSV 93.00 cm/sec Rt Pop Prx PSV 84.00 cm/sec Lt Post Tibial Mid PSV 88.00 cm/sec Rt Pop Dst PSV 80.00 cm/sec Lt Peroneal Prx PSV 71.00 cm/sec Rt Ant Tibial Prx PSV 80.00 cm/sec Lt Peroneal Mid PSV 67.00 cm/sec Rt Post Tibial Prx PSV 168.00 cm/sec Rt Post Tibial Mid PSV 95.00 cm/sec Rt Peroneal Prx PSV 69.00 cm/sec Rt Peroneal Mid PSV 66.00 cm/sec GRAFTS: Right Value Left Value Location Rt SFA-Pop Location Lt fem-pop Rt BPG Inflow PSV 136.00 cm/sec Lt BPG Inflow PSV 77.00 cm/sec Rt Anast Prx PSV 66.00 cm/sec Lt Anast Prx PSV 76.00 cm/sec Rt BPG Prx PSV 48.00 cm/sec Lt BPG Prx PSV 51.00 cm/sec Rt BPG Mid PSV 55.00 cm/sec Lt BPG Mid PSV 55.00 cm/sec Rt BPG Dst PSV 101.00 cm/sec Lt BPG Dst PSV 41.00 cm/sec Rt Anast Dst PSV 74.00 cm/sec Lt Anast Dst PSV 52.00 cm/sec Rt BPG Outflow PSV 58.00 cm/sec Lt BPG Outflow PSV 67.00 cm/sec FINDINGS: Right: Triphasic arteries include the right common femoral artery,profunda femoral artery, proximal superficial femoral artery, popliteal artery, anteriortibial artery, posterior tibial artery and peroneal artery. Increased velocities noted ofthe right profunda femoral artery and proximal superficial femoral artery. Rightpopliteal artery measures 1.17 x 1.12 cm. Left: Triphasic arteries include the left common femoral artery, anteriortibial artery, posterior tibial artery and peroneal artery. Normal velocities noted ofthe left common femoral artery, anterior tibial artery, posterior tibial artery andperoneal artery. Bypass Graft 1: The bypass graft is located in the right superficialfemoral to popliteal artery. Patent lower extremity bypass graft with no evidence of stenosis.Proximal anastomosis measures 2.06 x 1.86 cm. Bypass Graft 2: The bypass graft is located in the left femoral topopliteal artery. Patent lower extremity bypass graft with no evidence of stenosis. Proximalanastomosis measures 1.87 x 1.98 cm. CONCLUSION: 1. There is moderate 50-75% stenosis in the right profunda femoralartery. 2. Right superficial femoral artery to popliteal bypass is widely patent.No evidence of stenosis. 3. Left femoral artery to popliteal bypass is widely patent, no evidenceof stenosis. ATTESTATION: I have reviewed and interpreted the pertinent images and measurements ofthis study. I attest to the conclusions in the final report that is provided above. Electronically Signed By: Nestor Handy MD 06/07/2025 12:55:46 PM EXTRACORPOREAL CIRCULATION SPECIALIST us Nestor Handy MD IMG US PROCEDURES Final Result * US LESLEY (06/07/2025 11:41 AM EXTRACORPOREAL CIRCULATION SPECIALIST) Anatomical Region Laterality Modality Vascular N/A Ultrasound 06/07/2025 9:51 AM EXTRACORPOREAL CIRCULATION SPECIALIST Narrative 06/07/2025 1:28 PM EXTRACORPOREAL CIRCULATION SPECIALIST Vascular & Vein Surgery [address] [place] [address] Lower Extremity Arterial Doppler Report Patient Name: GINO PARKS E : 1960 Study Date: 06/07/2025 9:51:00 AM Sex: M Powder Coater: Ambika Arredondo RVT Location: [facility] Ref Provider: NESTOR HANDY Quality: Adequate Order Provider: NESTOR HANDY PROCEDURES: Arterial Report: Ankle - Brachial Index Doppler exam. INDICATIONS: S/P BA Lt FELT COVERER, fem-pop BPG & PT 04/18/23; S/P lysis cath Lt fem-pop BPG 04/17/23; S/P lig. Lt pop aneurysm, Lt fem-pop BPG 02/28/23; S/P Rt fem-pop BPG 2012. HISTORY: HLD. Bladder CA. Former smoker. COMPARISONS: No change compared to prior study. The previous exam was completed on 11/23/24: Rt 1.08, Lt 0.98. MEASUREMENTS: Right Value Left Value Rt Brachial Pressure 121 mmHg Lt Brachial Pressure 119 mmHg Rt CRAB PICKER Pressure 153 mmHg Lt CRAB PICKER Pressure 128 mmHg Rt DPA Pressure 128 mmHg Lt DPA Pressure 119 mmHg Rt PT LESLEY Resting 1.26 Lt PT LESLEY Resting 1.06 Rt DP LESLEY Resting 1.06 Lt DP LESLEY Resting 0.98 FINDINGS: Right Posterior Tibial Artery Analysis: The posterior tibial waveform is triphasic. Right Anterior Tibial Artery Analysis: The anterior tibial waveform is triphasic. Left Posterior Tibial Artery Analysis: The posterior tibial waveform is triphasic. Left Anterior Tibial Artery Analysis: The anterior tibial waveform is triphasic. CONCLUSIONS: 1. Ankle-brachial index of 0.9-1.3 is within normal limits in the bilateral lower extremities. ATTESTATION: I have reviewed and interpreted the pertinent images and measurements of this study. I attest to the conclusions in the final report that is provided above. Electronically Signed By: Nestor Handy MD 06/07/2025 12:54:45 PM EXTRACORPOREAL CIRCULATION SPECIALIST Procedure Note Nestor Handy MD - 06/07/2025 Vascular & Vein Surgery [facility] [place] [address] Lower Extremity Arterial Doppler Report Patient Name: GINO PARKS E : 1960 Study Date: 06/07/2025 9:51:00 AM Sex: M Powder Coater: Ambika Arredondo RVT Location: [facility] Ref Provider: NESTOR HANDY Quality: Adequate Order Provider: NESTOR HANDY PROCEDURES: Arterial Report: Ankle - Brachial Index Doppler exam. INDICATIONS: S/P BA Lt FELT COVERER, fem-pop BPG & PT 04/18/23; S/P lysis cath Lt fem-pop BPG 04/17/23; S/P lig. Lt pop aneurysm, Lt fem-pop BPG 02/28/23; S/P Rt fem-pop BPG 2012. HISTORY: HLD. Bladder CA. Former smoker. COMPARISONS: No change compared to prior study. The previous exam was completed on11/23/24: Rt 1.08, Lt 0.98. MEASUREMENTS: Right Value Left Value Rt Brachial Pressure 121 mmHg Lt Brachial Pressure 119 mmHg Rt CRAB PICKER Pressure 153 mmHg Lt CRAB PICKER Pressure 128 mmHg Rt DPA Pressure 128 mmHg Lt DPA Pressure 119 mmHg Rt PT LESLEY Resting 1.26 Lt PT LESLEY Resting 1.06 Rt DP LESLEY Resting 1.06 Lt DP LESLEY Resting 0.98 FINDINGS: Right Posterior Tibial Artery Analysis: The posterior tibial waveform is triphasic. Right Anterior Tibial Artery Analysis: The anterior tibial waveform is triphasic. Left Posterior Tibial Artery Analysis: The posterior tibial waveform is triphasic. Left Anterior Tibial Artery Analysis: The anterior tibial waveform is triphasic. CONCLUSIONS: 1. Ankle-brachial index of 0.9-1.3 is within normal limits in thebilateral lower extremities. ATTESTATION: I have reviewed and interpreted the pertinent images and measurements ofthis study. I attest to the conclusions in the final report that is provided above. Electronically Signed By: Nestor Handy MD 06/07/2025 12:54:45 PM EXTRACORPOREAL CIRCULATION SPECIALIST Nestor Handy MD IM US PROCEDURES Final Result * CTA Abdominal Aorta And Bilateral Iliofemoral Runoff (04/16/2023 3:52 PM CDT) Anatomical Region Laterality Modality Body Bilateral Computed Tomogra phy 04/16/2023 4:14 PM CDT Narrative 04/16/2023 4:37 PM CDT EXAM DESCRIPTION: CTA ABDOMINAL AORTA AND BILATERAL ILIOFEMORAL RUNOFF REASON FOR STUDY: Arterial embolism, lower extremity, possible fem-pop occlusion, run-off please Pt from Dr. Nestor Handy's office with concern for fempop left lower extremity thrombus. Pt had a femoral artery bypass graft done in February of 2023. Hx: bladder cancer TECHNIQUE: CTA of the abdominal aorta with bilateral lower extremity runoff was performed without and with intravenous contrast using helical scanning technique. Precontrast and arterial images were obtained of the lower extremities. Images reviewed with soft tissue and bone windows. Reconstructed coronal and sagittal MPR images reviewed. All images stored on PACS. 3D MIP images rendered on scanning unit and reviewed at time of interpretation. Automated exposure control was used as a dose optimization technique for this examination. CONTRAST TYPE/DOSE: 100mL of IOVERSOL 350 MG IODINE/ML INTRAVENOUS SYRINGE injected via intravenous COMPARISON: None FINDINGS: VASCULATURE: NON-CONTRASTED IMAGING: Diffuse atherosclerotic calcification of the visualized vasculature. ABDOMINAL AORTA: Atherosclerotic calcification of the abdominal aorta without aneurysm or dissection. No penetrating atherosclerotic ulcer. MESENTERIC/RENAL: No flowing limiting disease. Single bilateral renal arteries. No anatomic variation of the mesenteric vessels. PELVIC VASCULATURE: Common/external iliac arteries: Moderate atherosclerotic calcification of the left common iliac artery with moderate stenosis. The left internal iliac artery is occluded with reconstitution distally. The left external iliac artery shows moderate areas of narrowing. The right common and right external iliac artery is mildly narrowed with scattered areas of atherosclerotic calcification. Moderate atherosclerotic calcification of the right internal iliac artery. Internal iliac arteries: As above. RIGHT LOWER EXTREMITY VASCULATURE: The right common femoral artery is patent. The profunda femoral arteries patent. The picayune right superficial femoral artery is occluded. There is a bypass graft which is patent. The right popliteal artery is patent without aneurysm. There are mild to moderate areas of atherosclerotic calcification in the right calf arteries which appear opacified distal to the ankle. LEFT LOWER EXTREMITY VASCULATURE: The left common femoral artery is mildly narrowed. The left profunda femoral arteries patent. The bypass graft on the left is occluded. The picayune left superficial femoral artery shows mild areas of stenosis without occlusion. There is moderate narrowing of the proximal popliteal artery. 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 Opacification of the anterior tibial artery is seen proximally via collateral vessels. The mid left anterior tibial artery is not opacified. There does appear to be collateral flow in the distal anterior tibial artery which appears to be diminutive but opacified distal to the ankle. The peroneal artery is supplied via collateral vessel and is opacified distal to the ankle. The posterior tibial artery is occluded proximally and reconstituted in the mid and distal portion and is opacified distal to the ankle ABDOMEN/PELVIS: LOWER CHEST: Mild emphysematous changes noted in the lung bases. Moderate coronary artery calcification. Trace pericardial effusion. LIVER: Normal size. No identified cystic or solid masses. No cysts. GALLBLADDER: No calcified gallstones. BILE DUCTS: No intrahepatic or extrahepatic ductal dilatation. SPLEEN: Normal size. No focal lesions. PANCREAS: No identified cystic or solid masses. No significant calcifications. No adjacent inflammation or peripancreatic fluid collections. Pancreatic duct not dilated. ADRENALS: Normal. KIDNEYS/URINARY TRACT: Cortical scarring in the interpolar right kidney. Cyst in the upper pole of the left kidney requires no specific follow-up. There is a smaller low-attenuation lesion measuring 6 mm which is too small to characterize but likely a cyst. No required follow-up. No hydronephrosis. Small amount of air within the bladder. Correlation for recent instrumentation. GI: Mild amount of stool within the rectal vault. Moderate sigmoid colon diverticulosis. No diverticulitis. Normal appendix. No dilated loops of bowel to suggest obstruction. PERITONEUM: No ascites or free air. RETROPERITONEUM: No mass or adenopathy. REPRODUCTIVE: No significant abnormality. MUSCULOSKELETAL: Mild thoracolumbar spondylosis. OTHER: Presumed postsurgical change with fat stranding in the left inguinal region. IMPRESSION: The left lower extremity bypass graft is occluded. There is opacification of the left anterior tibial artery proximally via collateral vessels. The mid left anterior tibial artery is occluded. There does appear to be collateral flow in the distal left anterior tibial artery which appears to be diminutive but opacified distal to the ankle. The left peroneal artery is occluded proximally and supplied via collateral vessel and is opacified distal to the ankle. The left posterior tibial artery is occluded proximally and reconstituted in the mid and distal portion and is opacified distal to the ankle. The right picayune superficial femoral artery is occluded. The right fem-pop bypass graft is patent. The right popliteal artery is patent without aneurysm. There are mild to moderate areas of atherosclerotic calcification in the right calf arteries which appear opacified distal to the ankle. Small amount of air within the bladder. Correlation for recent instrumentation. These findings were discussed with the charge nurse by SARTHAK at 4:36 pm central standard time on 04/16/2023 . THIS IS AN ELECTRONICALLY VERIFIED FINAL REPORT 04/16/2023 4:37 PM - Electronically signed by Pipo DE LEÓN T: Report ID: [id number] Reading Location: [id number] Procedure Note Pipo Harris MD - 04/16/2023 EXAM DESCRIPTION: CTA ABDOMINAL AORTA AND BILATERAL ILIOFEMORAL RUNOFF REASON FOR STUDY: Arterial embolism, lower extremity, possible fem-pop occlusion, run-off please Pt from Dr. Nestor Handy's office with concern for fempop left lowerextremity thrombus. Pt had a femoral artery bypass graft done in February of 2023.Hx: bladder cancer TECHNIQUE: CTA of the abdominal aorta with bilateral lower extremityrunoff was performed without and with intravenous contrast using helicalscanning technique. Precontrast and arterial images were obtained of the lower extremities. Images reviewed with soft tissue and bone windows. Reconstructed coronal and sagittal MPR images reviewed. All images storedon PACS. 3D MIP images rendered on scanning unit and reviewed at time of interpretation. Automated exposure control was used as a doseoptimization technique for this examination. CONTRAST TYPE/DOSE: 100mL of IOVERSOL 350 MG IODINE/ML INTRAVENOUSSYRINGE injected via intravenous COMPARISON: None FINDINGS: VASCULATURE: NON-CONTRASTED IMAGING: Diffuse atherosclerotic calcification of the visualized vasculature. ABDOMINAL AORTA: Atherosclerotic calcification of the abdominal aorta without aneurysm or dissection. No penetrating atherosclerotic ulcer. MESENTERIC/RENAL: No flowing limiting disease. Single bilateral renal arteries. No anatomic variation of the mesenteric vessels. PELVIC VASCULATURE: Common/external iliac arteries: Moderate atherosclerotic calcificationof the left common iliac artery with moderate stenosis. The left internaliliac artery is occluded with reconstitution distally. The left external iliac artery shows moderate areas of narrowing. The right common and rightexternal iliac artery is mildly narrowed with scattered areas of atherosclerotic calcification. Moderate atherosclerotic calcification of the rightinternal iliac artery. Internal iliac arteries: As above. RIGHT LOWER EXTREMITY VASCULATURE: The right common femoral artery is patent. The profunda femoral arteries patent. The picayune rightsuperficial femoral artery is occluded. There is a bypass graft which is patent. The right popliteal artery is patent without aneurysm. There are mild tomoderate areas of atherosclerotic calcification in the right calf arteries whichappear opacified distal to the ankle. LEFT LOWER EXTREMITY VASCULATURE: The left common femoral artery ismildly narrowed. The left profunda femoral arteries patent. The bypass graft onthe left is occluded. The picayune left superficial femoral artery shows mildareas of stenosis without occlusion. There is moderate narrowing of theproximal popliteal artery. There is an occluded 1.7 cm left popliteal arteryaneurysm. Opacification of the anterior tibial artery is seen proximally viacollateral vessels. The mid left anterior tibial artery is not opacified. Theredoes appear to be collateral flow in the distal anterior tibial artery which appears to be diminutive but opacified distal to the ankle. The peroneal artery is supplied via collateral vessel and is opacified distal to theankle. The posterior tibial artery is occluded proximally and reconstituted inthe mid and distal portion and is opacified distal to the ankle ABDOMEN/PELVIS: LOWER CHEST: Mild emphysematous changes noted in the lung bases.Moderate coronary artery calcification. Trace pericardial effusion. LIVER: Normal size. No identified cystic or solid masses. No cysts. GALLBLADDER: No calcified gallstones. BILE DUCTS: No intrahepatic or extrahepatic ductal dilatation. SPLEEN: Normal size. No focal lesions. PANCREAS: No identified cystic or solid masses. No significant calcifications. No adjacent inflammation or peripancreatic fluidcollections. Pancreatic duct not dilated. ADRENALS: Normal. KIDNEYS/URINARY TRACT: Cortical scarring in the interpolar right kidney. Cyst in the upper pole of the left kidney requires no specific follow-up. There is a smaller low-attenuation lesion measuring 6 mm which is toosmall to characterize but likely a cyst. No required follow-up. Nohydronephrosis. Small amount of air within the bladder. Correlation for recent instrumentation. GI: Mild amount of stool within the rectal vault. Moderate sigmoidcolon diverticulosis. No diverticulitis. Normal appendix. No dilated loops of bowel to suggest obstruction. PERITONEUM: No ascites or free air. RETROPERITONEUM: No mass or adenopathy. REPRODUCTIVE: No significant abnormality. MUSCULOSKELETAL: Mild thoracolumbar spondylosis. OTHER: Presumed postsurgical change with fat stranding in the leftinguinal region. IMPRESSION: The left lower extremity bypass graft is occluded. There is opacification of the left anterior tibial artery proximally via collateral vessels. The mid left anterior tibial artery is occluded.There does appear to be collateral flow in the distal left anterior tibialartery which appears to be diminutive but opacified distal to the ankle. The left peroneal artery is occluded proximally and supplied via collateral vesseland is opacified distal to the ankle. The left posterior tibial artery isoccluded proximally and reconstituted in the mid and distal portion and isopacified distal to the ankle. The right picayune superficial femoral artery is occluded. The rightfem-pop bypass graft is patent. The right popliteal artery is patent withoutaneurysm. There are mild to moderate areas of atherosclerotic calcification in theright calf arteries which appear opacified distal to the ankle. Small amount of air within the bladder. Correlation for recent instrumentation. These findings were discussed with the charge nurse by SARTHAK at 4:36 pm central standard time on 04/16/2023 . THIS IS AN ELECTRONICALLY VERIFIED FINAL REPORT 04/16/2023 4:37 PM - Electronically signed by Pipo DE LEÓN T: Report ID: [id number] Reading Location: [place] [id number] us Vj Johnson MD IM CT PROCEDURES Sarita l Result * PSA, total (10/08/2016 9:13 AM CDT) PSA, TOTAL 0.4 < OR = 4.0 ng/mL [facility] HISTORICAL RESULTS Comment: This test was performed using the Siemens chemiluminescent method. Values obtained from different assay methods cannot be used interchangeably. PSA levels, regardless of value, should not be interpreted as absolute evidence of the presence or absence of disease. 10/08/2016 9:13 AM CDT 10/09/2016 9:07 AM CDT Narrative MICHAEL Nash [facility] HISTORICAL RESULTS - 10/09/2016 5:23 AM CDT FASTING:YES PERFORMING LAB: [place], [facility] [address], [place] [address] Eren Vo D.O., MPH us Historical Provider LAB BLOOD ORDERABLES Sarita sr Result [facility] HISTORICAL RESULTS from Last 3 Months or Most Recently Relevant to Health Maintenance Insurance [facility] UHC MEDICARE ADVANTAGE [employer] Advance Directives For more information, please contact: [phone] * Full Code (Latest Code Status on File) Date Activated Date Inactivated Comments 04/16/2023 8:06 PM 04/19/2023 5:32 PM * Full Code Date Activated Date Inactivated Comments 02/25/2023 1:41 PM 03/01/2023 4:17 PM Care Teams Dye Beck Reel Operator Relationship Specialty Start Date End Date Chace Aleman MD [address] [place] [address] PCP - General Internal Medicine 02/20/23
--- OUTSIDE RECORDS SUMMARY | 2025-07-12 10:13 | XMS_ITS | Encounter Summary ---
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 Historical Provider Final Res ult documented in this encounter Visit Diagnoses Not on filedocumented in this encounter Care Teams Senior Data Analyst Relationship Specialty Start Date End Date Referring, Unknown, PCP - General 02/19/23 02/19/23 Chace Aleman MD [address] [place] [address] PCP - General Internal Medicine 02/20/23 documented as of this encounter
== END 2025-07-12 09:49 | disposition home or self-care (01) ==
LOC: CHSIMG 09:52
PROVIDERS: PCP Internal Medicine; Visit Provider Internal Medicine
DX: Z12.2 Encounter for screening for malignant neoplasm of respiratory organs (principal); Z87.891 Personal history of nicotine dependence
CPT/HCPCS: 71271